=== PATIENT | female | born 1965 | race Caucasian/White ===

== ENCOUNTER 2019-06-15 21:17 | Inpatient (IN) | payer MEDICARE, MEDICAID, SELFPAY ==
--- NOTE | ~2019-06-15 | XR_ITS ---
EXAMINATION: XR chest 1V portable DATE: 06/17/2019 06:05 INDICATION: Bilateral pulmonary infiltrates TECHNIQUE: frontal view of the chest was obtained. COMPARISON: Chest radiograph dated 06/16/2019 FINDINGS: Sensitivity and specificity decreased by patient body habitus. Slight improvement in the diffuse airs pace opacities throughout both lungs relatively sparing the apices. No pneumothorax or definitive ple ural effusion. Borderline heart size for AP technique. IMPRESSION: 1. Slight improvement in diffuse bilateral lung disease which could represent pulmonary edema and/or pneumonia. 2. Borderline heart size. Reviewed, dictated and finalized at location A. IMPRESSION: 1. Slight improvement in diffuse bilateral lung disease which could represent p ulmonary edema and/or pneumonia. 2. Borderline heart size.
--- NOTE | ~2019-06-15 | XR_ITS ---
EXAMINATION: XR chest 1V portable DATE: 06/16/2019 06:18 INDICATION: Respiratory distress TECHNIQUE: frontal view of the chest was obtained. COMPARISON: Chest radiograph dated 06/15/2019 FINDINGS: Sensitivity and specificity decreased by body habitus. Increasing opacities in the bilateral mid and lower lung zones. No pneumothorax. Cardiomediastinal silhouette within normal limits for AP technique . IMPRESSION: 1. Increasing opacities in the bilateral mid and lower lung zones which could represent worsening pul monary edema and/or pneumonia possibly with superimposed posteriorly layering small pleural effusions . Reviewed, dictated and finalized at location A. IMPRESSION: 1. Increasing opacities in the bilateral mid and lower lung zones which could r epresent worsening pulmonary edema and/or pneumonia possibly with superimposed posteriorly layering small pleural effusions.
--- NOTE | ~2019-06-15 | XR_ITS ---
EXAMINATION: XR chest 1V portable DATE: 06/18/2019 05:46 INDICATION: Bilateral pulmonary infiltrates TECHNIQUE: frontal view of the chest was obtained. COMPARISON: Chest radiograph dated 06/17/2019 FINDINGS: Near complete resolution of the prior bilateral airspace opacities no pleural effusion or pneumothora x.. The cardiomediastinal silhouette is normal. IMPRESSION: 1. Near complete resolution of prior bilateral airspace opacities which given the rapidity of improve ment favors resolving pulmonary edema. Reviewed, dictated and finalized at location A. IMPRESSION: 1. Near complete resolution of prior bilateral airspace opacities which given t he rapidity of improvement favors resolving pulmonary edema.
--- NOTE | ~2019-06-15 | XR_ITS ---
EXAMINATION: XR chest 1V portable INDICATION: Shortness of breath and cough TECHNIQUE: Portable AP chest at 2150 hours COMPARISON: 11/21/2018 FINDINGS: There are airspace opacities in the mid and lower lung zone predominance. A mild diffuse in terstitial pattern is suggested. The heart size is upper limits of normal for technique. No pleural e ffusion or pneumothorax is identified. IMPRESSION: 1. Opacities of the mid and lower lung zones which could reflect atelectasis and/or pneumonia and/or pulmonary edema. Reviewed, dictated and finalized at location A. IMPRESSION: 1. Opacities of the mid and lower lung zones which could reflect atelectasis an d/or pneumonia and/or pulmonary edema.
--- NOTE | ~2019-06-15 | US_ITS ---
EXAMINATION: US renal BI EXAM DATE: 06/16/2019 15:10 INDICATION: Elevated creatinine. TECHNIQUE: Multiple grayscale and Doppler images of the kidneys were obtained (by a technologist who performed the scan) and subsequently reviewed. Comparison is made to prior examination from 03/06/2019 . FINDINGS: There is bilateral renal cortical thinning. Right kidney: There is normal dimensions, contour and echogenicity. There are no focal renal lesion s identified. There is no hydronephrosis. Left kidney: There is normal dimensions, contour and echogenicity. There are no focal renal lesions identified. There is no hydronephrosis. Bladder poorly visualized, reportedly Castillo catheter was in place. IMPRESSION: 1. Bilateral renal cortical thinning. Reviewed, dictated and finalized at location G.
--- NOTE | ~2019-06-15 | XR_ITS ---
EXAMINATION: XR chest 1V portable DATE: 06/19/2019 05:44 INDICATION: Bilateral pulmonary infiltrates TECHNIQUE: frontal view of the chest was obtained. COMPARISON: Chest radiograph dated 06/18/2019 FINDINGS: Pulmonary vascular congestion without keren pulmonary edema. No pleural effusion or pneumothorax. The cardiomediastinal silhouette is normal. IMPRESSION: 1. . Resolution of prior pulmonary edema with residual pulmonary vascular congestion Reviewed, dictated and finalized at location A. IMPRESSION: 1. . Resolution of prior pulmonary edema with residual pulmonary vascular conge aide
--- NOTE | ~2019-06-15 | US_ITS ---
EXAMINATION: US venous doppler [facility] DATE: 06/17/2019 11:05 INDICATION: Lower limb swelling TECHNIQUE: Grayscale ultrasound images without and with compression and Doppler ultrasound images of the bilateral lower extremity veins were obtained. COMPARISON: None. FINDINGS: The visualized portions of right common femoral vein, profunda (deep) femoral vein, femoral vein, pop liteal vein, posterior tibial veins, peroneal veins and greater saphenous vein outflow are patent. The visualized portions of left common femoral vein, profunda femoral vein, femoral vein, popliteal v ein, posterior tibial veins, peroneal veins, gastrocnemius vein and greater saphenous vein outflow ar e patent. IMPRESSION: 1. No deep venous thrombosis in either lower limb. Reviewed, dictated and finalized at location A.
[2019-06-15 21:12] VITALS: BP 170/84; PULSE 94; RESP 20; TEMP 36.5; O2SAT 99
--- NOTE | 2019-06-15 21:25 | ECG_ITS ---
Measurements Intervals [place] Rate: 88 P: [place]: 0 QRS: -3 QRSD: 116 T: 132 QT: 394 QTc: 479 Interpretive Statements SINUS OR ECTOPIC ATRIAL RHYTHM INTRAVENTRICULAR CONDUCTION DELAY LEFT VENTRICULAR HYPERTROPHY AND ST-T CHANGE POOR R WAVE PROGRESSION, ANTERIOR LEADS ABNORMAL ECG Electronically Signed On 06-16-2019 7:08:28 CDT by Ant Narayan D.O.
--- NOTE | 2019-06-15 21:27 | ED.GENADULT ---
HPI - General Adult General Chief complaint: Shortness of Breath/Dyspnea Stated complaint: sob, anxiety Source: patient Mode of arrival: EMS History of Present Illness HPI narrative: Patient is a 53 y/o female complaining severe chronic SOB. She states that her symptoms worsened 4 weeks ago. There is no alleviating or exacerbating factor. She feels anxious. She denies any fever, cough or chest pain. She states that she has history of COPD, CHF and sarcoidosis. 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 Related Data Home Medications Medication Instructions Recorded Confirmed Basaglar KwikPen U-100 Insulin 50 unit SUBCUT BID 03/05/19 06/07/19 aripiprazole [Abilify] 20 mg PO DAILY 03/05/19 06/07/19 atorvastatin 20 mg PO DAILY 03/05/19 06/07/19 cetirizine [Zyrtec] 10 mg PO DAILY 03/05/19 06/07/19 duloxetine [Cymbalta] 60 mg PO BID 03/05/19 06/07/19 gabapentin 300 mg PO TID 03/05/19 06/07/19 hydroxychloroquine [Plaquenil] 200 mg PO BID 03/05/19 06/07/19 hydroxyzine pamoate [Vistaril] 25 mg PO HS 03/05/19 06/07/19 insulin lispro [Admelog U-100 35 unit SUBCUT AC 03/05/19 06/07/19 Insulin lispro] isosorbide mononitrate 120 mg PO DAILY 03/05/19 06/07/19 lisinopril 10 mg PO DAILY 03/05/19 06/07/19 metoprolol tartrate 25 mg PO BID 03/05/19 06/07/19 montelukast 10 mg PO DAILY 03/05/19 06/07/19 furosemide 40 mg tablet 80 mg PO BID tablet 06/03/19 06/07/19 oxycodone-acetaminophen 10 mg-325 1 tablet PO Q8H PRN 06/03/19 06/07/19 mg tablet Allergies Allergy/AdvReac Type Severity Reaction Status Date / Time shellfish derived Allergy Severe Swelling Verified 06/15/19 22:00 iodine Allergy Mild Swelling Verified 06/15/19 22:00 penicillin G Allergy Mild Hives Verified 06/15/19 22:00 Penicillins Allergy Mild Hives Verified 06/15/19 22:00 Sulfa (Sulfonamide Allergy Mild hives Verified 06/15/19 22:00 Antibiotics) sulfamethizole Allergy Mild Hives Verified 06/15/19 22:00 sulfamethoxazole Allergy Mild hives Verified 06/15/19 22:00 trimethoprim Allergy Mild hives Verified 06/15/19 22:00 codeine AdvReac Severe Nausea and Verified 06/15/19 22:00 Vomiting Review of Systems Constitutional: Constitutional: Denies chills, Denies fever(s), Denies headache(s) and Denies weakness Eyes: Eyes: Denies blurry vision ENT: Denies headache(s) and Denies neck pain Cardiovascular: Cardiovascular: Denies chest pain and Denies dyspnea Respiratory: Respiratory: Denies cough and Reports dyspnea Gastrointestinal: Gastrointestinal: Denies abdominal pain, Denies diarrhea, Denies nausea and Denies vomiting Genitourinary: Genitourinary: Denies hematuria and Denies dysuria Musculoskeletal: Musculoskeletal: Denies back pain and Denies neck pain Neurologic: Denies headache(s) and Denies weakness [facility] Past Medical History Medical History Anemia Anxiety Bronchitis CHF (congestive heart failure) Chronic back pain CKD stage 3 due to type 1 diabetes mellitus Colon polyps COPD (chronic obstructive pulmonary disease) Depression Diabetes Endometriosis Epilepsy Foot fracture, right GERD (gastroesophageal reflux disease) Herpes History of angina HTN (hypertension) Hyperlipidemia IBS (irritable bowel syndrome) Pancreatitis Peripheral neuropathy PID (acute pelvic inflammatory disease) Pneumonia Post-menopausal Renal disease Sarcoidosis Seasonal allergies Sleep apnea Type 2 diabetes mellitus with hyperglycemia UTI (urinary tract infection) Surgical History Surgical History H/O laparoscopy History of cardiac catheterization History of section History of cholecystectomy History of endometrial ablation History of rectal polypectomy History of spinal surgery Spinal decompression surgery History of tubal ligation Family History Family History Mother
[2019-06-15 21:49] LABS: Basophils Percent Auto 0.6 % (0.2-1.2); Eosinophils Absolute Auto 0.4 K/mm3 (0-0.3); Eosinophils Percent Auto 5.7 % (0-4.4); Hematocrit 28.2 % (37.0-47.0); Immature Granulocyte Absolute 0.07 K/mm3 (0.00-0.031); Lymphocytes Absolute Auto 0.71 K/mm3 (0.9-3.2); Lymphocytes Percent Auto 10.4 % (18.3-44.2); Mean Corpuscular HGB Conc 31.9 g/dl (32-36); Mean Corpuscular Hemoglobin 28.9 pg (26-34); Mean Corpuscular Volume 90.7 fl (80-100); Mean Platelet Volume 9.7 fl (7.4-10.4); Monocytes Absolute Auto 0.5 K/mm3 (0.1-0.6); Monocytes Percent Auto 7.8 % (2.6-8.5); Neutrophils Absolute Auto 5.1 K/mm3 (1.3-6.7); Neutrophils Percent Auto 74.5 % (45.5-73.1); Platelet Count Result 176 k/mm3 (150-375); Red Blood Count 3.11 M/mm3 (4.2-5.4); Red Cell Distribution Width 15.4 % (11.5-14.5); White Blood Count 6.8 K/mm3 (4.5-10.0)
[2019-06-15 22:05] LABS: Alveolar/Arterial O2 Gradient 104.7 mmHg; Base Excess ABG -0.8 mEq/l (+/-2.0); Fractional Inspired Oxygen 32 %; HCO3 ABG 24.8 mEq/l (22.0-26.0); Oxygen Saturation ABG 93.4 % (95.0-100.0); Oxyhemoglobin 91.9 % THb (90.0-100.0); PCO2 ABG 45.4 mmHg (35.0-45.0); PO2 ABG 70.3 mmHg (80.0-100.0); pH ABG 7.356 (7.350-7.450)
[2019-06-15 22:06] LABS: Device NASAL CANNULA; Modified Allen's Test Pass; Site Drawn RIGHT RADIAL
[2019-06-15 22:23] LABS: Alanine Aminotransferase 25 U/L (4-35); Albumin Level 3.8 g/dL (3.5-5.1); Alkaline Phosphatase 98 U/L (38-126); Aspartate Amino Transferase 28 U/L (14-36); Bilirubin,Total 0.5 mg/dL (0.2-1.3); Blood Urea Nitrogen 60 mg/dL (7-17); Calcium 8.9 mg/dL (8.4-10.2); Carbon Dioxide 26 mmol/L (22-30); Chloride 95 mmol/L (98-107); Estimated CRCL calculation 49 ml/min; Estimated Glomerular Filt Rate 23; Glucose 450 mg/dL (65-105); Potassium 5.2 mmol/L (3.4-5.0); Sodium 131 mmol/L (137-145)
[2019-06-15 22:33] VITALS: BP 167/89; PULSE 78; RESP 15; O2SAT 97
[2019-06-15 22:35] LABS: NT Pro B Type Natriuretic Pept 1300 PG/ML (5-100); Troponin I < 0.012 ng/mL (0.000-0.034)
[2019-06-15] MEDS: INSULIN HUMAN REGULAR (*BKC) 100 UNITS/ML 10 UNITS IV PUSH (22:39)
[2019-06-15] MEDS: SODIUM POLYSTYRENE SULFONONATE 15 GM/60 ML BTL PO (22:39)
[2019-06-15] MEDS: methylPREDNISolone SOD SUCC 125 MG VIAL IV PUSH (22:47)
[2019-06-15 22:51] LABS: CRP 2.8 mg/dL (<1.0); Lactate Dehydrogenase 698 U/L (313-618)
[2019-06-15] MEDS: FUROSEMIDE INJ 40 MG/4 ML VIAL IV PUSH (23:30)
[2019-06-15 23:34] VITALS: BP 140/68; PULSE 78; RESP 20; O2SAT 97
[2019-06-16] VITALS (30 sets, daily range): BP systolic 139–170; BP diastolic 56–86; PULSE 70–99; RESP 17–31; TEMP 36.1–37.5; O2SAT 88–100; BMI 58.2
--- NOTE | 2019-06-16 | ECHO_ITS ---
Patient Info Name: Bettye Parada Age: 53 years : 1965 Gender: Female Ht: 70 in Wt: 406 lbs BSA: 3.13 m2 HR: 75 bpm BP: 150 / 72 mmHg Heart Rhythm: Sinus Rhythm Technical Quality: Good Exam Date: 06/16/2019 3:47 PM Exam Location: [facility] Pulmonary Patient Status: Inpatient Admit Date: 06/16/2019 Staff Ordering Physician: Massimo Mueller MD Piece Work Checker: Raji Adams RDCS Attending Provider: Jimena Watson DO Referring Physician: Ervin VANESSA; Exam Type: CA echo doppler color flow Study Info Indications R06.02 - Shortness of breath Complete two-dimensional, color flow and Doppler transthoracic echocardiogram is performed. History/Risk Factors Acute respiratory failure, DM2, COPD, HFpEF, CKD3. Summary 1. Left ventricular chamber size and systolic function are normal with no regional wall motion abnormalities with an estimated ejection fraction of >70%. Grade 2 diastolic dysfunction is present. Mild left ventricular hypertrophy noted. 2. Mitral annular calcification noted, but otherwise no significant valve disease. 3. There is mild aortic root atherosclerosis. 4. Left atrial chamber dimension is mildly enlarged. 5. Pulmonary pressures could not be determined. 6. Normal sinus rhythm. 7. Technically difficult study. Left Ventricle Left ventricular chamber dimension is normal. Left ventricular systolic function is normal, estimated at >70%. There is no increased left ventricular wall thickness. Left ventricular septal wall motion is normal. The left ventricular diastolic function is grade II diastolic dysfunction. Left ventricular chamber size and systolic function are normal with no regional wall motion abnormalities with an estimated ejection fraction of >70%. Grade 2 diastolic dysfunction is present. Mild left ventricular hypertrophy noted. Right Ventricle Right ventricular chamber dimension is normal. Right ventricular systolic function is normal. Left Atria Left atrial chamber dimension is mildly enlarged. Right Atria Right atrial chamber dimension is normal. Aortic Valve The aortic valve is trileaflet. There is no aortic valve sclerosis. There is no aortic valve stenosis. There is no aortic valve regurgitation. Pulmonic Valve The pulmonic valve is normal. There is no pulmonic valve stenosis. There is no pulmonic regurgitation. Mitral Valve The mitral valve has calcified annulus. There is no mitral valve stenosis. There is no mitral valve regurgitation. Tricuspid Valve The tricuspid valve leaflets are normal. There is no significant tricuspid valve stenosis. There is trace tricuspid valve regurgitation. No pulmonary hypertension, estimated pulmonary arterial systolic pressure is Empty. Pericardium/Pleural The pericardium appears normal. There is no pericardial effusion. Inferior Vena Cava Not well visualized inferior vena cava with >50% collapse upon inspiration consistent with Empty right atrial pressure, 10 mmHg. Aorta The aortic root size at the sinus of Valsalva is normal. The prox ascending aorta size is normal. There is mild aortic root atherosclerosis. Left Ventricular Outflow Tract Name Value Normal LVOT 2D
--- NOTE | 2019-06-16 00:38 | ADMGEN ---
This patient, Bettye Parada, was admitted to [facility] Surg Room 325-01. Patient/family oriented to hospital policies and general routines including ID bracelet, bed and alarms, visiting hours, pain management, procedures, bathroom and other care routines, personal items, smoking policy, room service/diet, and visiting hours. Valuables list has been completed. Information on how to activate the Rapid Response Team has been discussed. Patient/Family are encouraged to report perceived risks to care and to ask questions if they do not understand what they are told or what they should do.
[2019-06-16] MEDS: hydrOXYzine pamoate 25 MG CAPSULE PO ×2 (02:50→20:05)
--- NOTE | 2019-06-16 03:10 | ECG_ITS ---
Measurements Intervals [place] Rate: 100 P: [place]: 0 QRS: -11 QRSD: 125 T: 97 QT: 379 QTc: 491 Interpretive Statements SINUS OR ECTOPIC ATRIAL TACHYCARDIA MISSING LEAD V6 INTRAVENTRICULAR CONDUCTION DELAY LEFT VENTRICULAR HYPERTROPHY AND ST-T CHANGE POOR R WAVE PROGRESSION, ANTERIOR LEADS BASELINE ARTIFACT- I, II, III, AVR, AVL, AVF, V1-V5 ABNORMAL ECG Electronically Signed On 06-16-2019 7:13:05 CDT by Ant Narayan D.O.
[2019-06-16 03:38] LABS: Alveolar/Arterial O2 Gradient 258.2 mmHg; Base Excess ABG -0.4 mEq/l (+/-2.0); Fractional Inspired Oxygen 50 %; HCO3 ABG 24.5 mEq/l (22.0-26.0); Oxygen Content ABG 13.7 %vol (16.0-22.0); Oxyhemoglobin 85.4 % THb (90.0-100.0); PCO2 ABG 40.8 mmHg (35.0-45.0); PO2 ABG 52.4 mmHg (80.0-100.0); PO2 FiO2 Ratio Arterial Blood 1.05 %; Total Hemoglobin 11.4 g/dL (12.0-18.0); pH ABG 7.396 (7.350-7.450)
--- NOTE | 2019-06-16 03:40 | PM.IMHP ---
H&P: HPI History of Present Illness Chief complaint: Shortness of breath and anxiety Narrative: Date and time of patient contact: 06/16/2019 at 3:40 a.m. Bettye Parada is a 53 year old female with a past medical history of poorly controlled insulin-dependent diabetes, peripheral neuropathy, sarcoidosis of the lungs, COPD, diastolic congestive heart failure, morbid obesity, obstructive sleep apnea, chronic kidney disease stage III who presented to the ER via EMS due to shortness of breath and anxiety. The patient reports that she has been short of breath for about a month. She has only been using her BiPAP for couple of hours at night. She states that she has been sleeping in a chair because she cannot lay down. The patient used to have chronic home oxygen but has not needed it in quite some time. She tried Mucinex at home without relief in her symptoms. She initially told me that she had not been coughing much but started coughing this evening after she arrived on the medical floor. She denies any fevers, loss of the sense of taste or smell, chills, nausea, or vomiting. The patient was requiring oxygen in the ER but the ER staff was able to wean the patient to room air after she received 40 mg of Lasix IV, and IV Solu-Medrol. However the patient remained tachypneic with respiratory rates in the upper 20s to low 30s. When she arrived to the medical floor she was satting 94% on room air. Due to her acute tachypnea the nursing staff placed her on nasal cannula oxygen of 5 L. the patient had gotten up to the bedside commode twice with only minimal difficult. However when she got up to the bedside commode a 3rd time she became hypoxic, developed substernal chest pain, and significant increased work of breathing. Nursing staff tried to contact june around 3:15 a.m. but I was in another patient's room. When the patient still had not recovered a rapid response was called at 3:27 a.m.. A stat ABG was drawn and the patient's oxygen was increased to 7 L nasal cannula. When I arrived at the patient's bedside at 3:40 a.m. the patient was sitting up outside the bed satting 100% on a non-rebreather. Her ABG returned at about that time demonstrating a pH a 7.39, pCO2 of 40, PO2 of 52 and bicarb of 24. The patient was mildly tachypneic when I arrived at the bedside with mild increased work of breathing. She had developed a dry cough since arriving from the ER. The patient had had 2.3 L of urine output since arriving to the medical floor. She reports that she was having good urine output with her home Lasix as well. But despite her urine output with Lasix the swelling in her lower extremities had been worsening. She reported that her chest pain was better after I gave her a dose of Ativan at time of the rapid response. Her breathing had calmed then she was wanting to try to get back into the bed and lay back instead of sitting forward on the edge of the bed. Stat troponin returned less than 0.012. A stat EKG was done but was poor quality due to the patient's respiratory distress and positioning. Stat D-dimer was mildly elevated. The patient's LDH was mildly left elevated in the ER to 698. Her BNP was 1300 which is similar to her prior BNPs. Her CRP was also elevated. Of note the patient's assisted living housekeeper's mother tested positive for COVID-19. Given the patient's respiratory symptoms and chest x-ray findings the patient was tested for COVID-19 in the ER. The patient was placed on isolation. Given the patient's high oxygen requirement and respiratory distress decision was made to transfer the patient to a higher level of care. When the patient's morning labs returned her potassium had climbed from 5.2-6 and her glucose had climbed from 450 up to 635. Given her hyperglycemia she was given 18 units of regular insulin IV, an amp of sodium bicarb in an amp of calcium gluconate. The patient had already received p.o. Kayexalate in the ER. subsequently a conta
[2019-06-16 03:42] LABS: Device NASAL CANNULA; Modified Allen's Test Pass; Site Drawn LEFT RADIAL
[2019-06-16] MEDS: LORAZEPAM INJ 2 MG/ML VIAL 1 MG IV PUSH (03:43)
[2019-06-16] MEDS: FUROSEMIDE INJ 40 MG/4 ML VIAL IV PUSH (03:50)
[2019-06-16 04:08] LABS: Basophils Percent Auto 0.5 % (0.2-1.2); Eosinophils Percent Auto 0.5 % (0-4.4); Hematocrit 31.1 % (37.0-47.0); Hemoglobin 10.1 g/dL (12.0-15.0); Immature Granulocyte Absolute 0.19 K/mm3 (0.00-0.031); Immature Granulocyte Percent A 2.2 % (0-0.5); Lymphocytes Percent Auto 4.6 % (18.3-44.2); Mean Corpuscular HGB Conc 32.5 g/dl (32-36); Mean Corpuscular Hemoglobin 29.4 pg (26-34); Mean Corpuscular Volume 90.4 fl (80-100); Mean Platelet Volume 9.6 fl (7.4-10.4); Monocytes Absolute Auto 0.1 K/mm3 (0.1-0.6); Monocytes Percent Auto 1.3 % (2.6-8.5); Neutrophils Percent Auto 90.9 % (45.5-73.1); Nucleated Red Blood Cells Perc 0.2 % (0.0-0.2); Platelet Count Result 187 k/mm3 (150-375); Red Blood Count 3.44 M/mm3 (4.2-5.4); Red Cell Distribution Width 15.1 % (11.5-14.5); White Blood Count 8.8 K/mm3 (4.5-10.0)
[2019-06-16 04:17] LABS: Prothrombin Time 12.9 Seconds (11.1-14.7)
[2019-06-16 04:20] LABS: D Dimer 1.68 ug/mL (<0.48)
[2019-06-16 04:33] LABS: Troponin I < 0.012 ng/mL (0.000-0.034)
[2019-06-16 04:35] LABS: Blood Urea Nitrogen 60 mg/dL (7-17); Calcium 8.8 mg/dL (8.4-10.2); Carbon Dioxide 26 mmol/L (22-30); Chloride 94 mmol/L (98-107); Estimated CRCL calculation 54 ml/min; Estimated Glomerular Filt Rate 26; Glucose 635 mg/dL (65-105); Sodium 129 mmol/L (137-145)
--- NOTE | 2019-06-16 04:50 | PC.NURSE ---
Patient transferred to ICU4 at 0435 on 06/16/19. Placed on BiPAP at 15/5 with 60%FiO2. SpO2 99%.
[2019-06-16] MEDS: CALCIUM GLUCONATE 1,000 MG/10 ML VIAL 1000 MG IV PUSH (05:42)
[2019-06-16] MEDS: SODIUM BICARBONATE 8.4% 50 MEQ/50 ML VIAL IV PUSH (05:42)
[2019-06-16] MEDS: INSULIN HUMAN REGULAR (*BKC) 100 UNITS/ML 18 UNITS IV PUSH (05:42)
[2019-06-16 05:50] LABS: Glucose Point of Care > 500 (65-105)
[2019-06-16] MEDS: INSULIN HUMAN REGULAR (*BKC) 100 UNITS in SODIUM CHLORIDE 0.9% IV 99 ML 10.6 UNITS IV CONT (06:18)
[2019-06-16 07:12] LABS: Glucose Point of Care > 500 (65-105)
[2019-06-16 07:19] LABS: Blood Urea Nitrogen 63 mg/dL (7-17); Calcium 9.1 mg/dL (8.4-10.2); Carbon Dioxide 28 mmol/L (22-30); Chloride 95 mmol/L (98-107); Estimated CRCL calculation 54 ml/min; Estimated Glomerular Filt Rate 26; Glucose 596 mg/dL (65-105); Potassium 5.2 mmol/L (3.4-5.0); Sodium 131 mmol/L (137-145)
[2019-06-16 07:38] LABS: Magnesium 2.2 mg/dL (1.6-2.3); Phosphorus 4.6 mg/dL (2.5-4.5)
[2019-06-16 07:39] LABS: Alveolar/Arterial O2 Gradient 244.7 mmHg; Base Excess ABG 1.5 mEq/l (+/-2.0); Carboxyhemoglobin 0.1 % THb (0-2.0); Fractional Inspired Oxygen 60 %; HCO3 ABG 27.6 mEq/l (22.0-26.0); Methemoglobin ABG 0.5 %THb (0-1.5); Oxygen Content ABG 16.6 %vol (16.0-22.0); Oxygen Saturation ABG 98.4 % (95.0-100.0); Oxyhemoglobin 97.2 % THb (90.0-100.0); PCO2 ABG 49.6 mmHg (35.0-45.0); PO2 ABG 128.5 mmHg (80.0-100.0); PO2 FiO2 Ratio Arterial Blood 2.14 %; Reduced Hemoglobin 2.2 %THb (0-5.0); pH ABG 7.363 (7.350-7.450)
[2019-06-16 07:40] LABS: Device NON-INVASIVE VENT; Modified Allen's Test Pass; Site Drawn LEFT RADIAL
[2019-06-16 07:41] LABS: Non-Invasive Expiratory Pressure 5 CMH2O; Non-Invasive Inspiratory Pressure 15 CMH2O; Non-Invasive Vent Rate 6 /MIN
[2019-06-16] MEDS: ATORVASTATIN 20 MG TABLET PO (08:58)
[2019-06-16] MEDS: DULOXETINE 60 MG CAPSULE.DR PO ×2 (08:58→16:30)
[2019-06-16] MEDS: GABAPENTIN 300 MG CAPSULE PO ×2 (08:59→16:26)
[2019-06-16] MEDS: LORATADINE 10 MG TABLET PO (08:59)
[2019-06-16] MEDS: MONTELUKAST SODIUM 10 MG TABLET PO (08:59)
[2019-06-16] MEDS: ISOSORBIDE MONONITRATE 60 MG TAB.ER.24H 120 MG PO (09:00)
[2019-06-16] MEDS: METOPROLOL TARTRATE 25 MG TABLET PO ×2 (09:00→16:29)
[2019-06-16] MEDS: ARIPIPRAZOLE 10 MG TABLET 20 MG PO (09:01)
--- NOTE | 2019-06-16 09:11 | WPDCNINT ---
Assessment and Plan Assessment and plan (1) Respiratory failure with hypoxia and hypercapnia: Qualifiers: Chronicity: acute on chronic Qualified Code(s): J96.21 - Acute and chronic respiratory failure with hypoxia; J96.22 - Acute and chronic respiratory failure with hypercapnia Code(s): J96.91 - Respiratory failure, unspecified with hypoxia; J96.92 - Respiratory failure, unspecified with hypercapnia Status: Acute Assessment and Plan: patient with bilateral infiltrates on chest x-ray, likely related to pneumonia, heart failure, volume overload - SARS-COV-2 PCR has been sent for COVID-19 - patient has been diuresed - started on ceftriaxone and azithromycin - patient on BiPAP, 15/5, 40% FiO2 with good O2 sats - continue bronchodilators, Solu-Medrol - Will check ECHO as patient has history obstructive sleep apnea, could have pulmonary hypertension, congestive heart failure (2) Suspected COVID-19 virus infection: Code(s): R68.89 - Other general symptoms and signs Status: Acute Assessment and Plan: SARS-COV-2 PCR has been sent and pending - continue droplet and airborne precautions for now (3) CHF (congestive heart failure): Qualifiers: Heart failure chronicity: acute on chronic Heart failure type: diastolic Qualified Code(s): I50.33 - Acute on chronic diastolic (congestive) heart failure Code(s): I50.9 - Heart failure, unspecified Status: Acute Assessment and Plan: patient with history of congestive heart failure - will check echocardiogram to assess right and left heart function (4) Hyperkalemia: Code(s): E87.5 - Hyperkalemia Status: Acute Assessment and Plan: patient presented with hyperkalemia could be related to acute on chronic kidney disease, - patient was treated for hyperkalemia, - potassium 4.9 this morning, will continue to monitor (5) Acute kidney injury superimposed on chronic kidney disease: Code(s): N17.9 - Acute kidney failure, unspecified; N18.9 - Chronic kidney disease, unspecified Status: Acute Assessment and Plan: acute on chronic kidney disease could multifactorial. Worsening secondary to diabetes, essential hypertension, obstructive sleep apnea, possible pulmonary hypertension, volume overload. - Appreciate Nephrology evaluation recommendation - will discuss with Nephrology regarding diuresis along with possible albumin as patient has anasarca - would give it a try with diuresis, if creatinine worsens will hold diuresing and give IV fluids. - Continue to monitor renal function, electrolytes and urine output (6) Hyperglycemic crisis due to diabetes mellitus: Code(s): E11.65 - Type 2 diabetes mellitus with hyperglycemia Status: Acute Assessment and Plan: hyperglycemia with blood sugars in the 600s - patient started on insulin infusion - hemoglobin A1c this admission is 11.0 (7) HTN (hypertension): Qualifiers: Hypertension type: essential hypertension Qualified Code(s): I10 - Essential (primary) hypertension Code(s): I10 - Essential (primary) hypertension Status: Acute Assessment and Plan: history of essential hypertension, continue metoprolol, Imdur Additional Plan discussed with patient in details, explained to her her condition and plan of care. Also discussed with her regarding intubation if her respiratory status worsens and if she requires intubation and placement on a mechanical ventilator, she agreed to it. She states she does want to . Code status: Full code Critical care time spent: 51 minutes Due to a high probability of clinically significant, life threatening deterioration, the patient required my highest level of preparedness to intervene emergently and I personally spent this critical care time directly and personally managing the patient. This critical care time included obtaining a history;
[2019-06-16 09:18] LABS: Glucose Point of Care > 500 (65-105)
--- NOTE | 2019-06-16 09:34 | PM.IMPN ---
Progress Note: A&P Assessment and Plan (1) Respiratory failure with hypoxia and hypercapnia: Qualifiers: Chronicity: acute on chronic Qualified Code(s): J96.21 - Acute and chronic respiratory failure with hypoxia; J96.22 - Acute and chronic respiratory failure with hypercapnia Code(s): J96.91 - Respiratory failure, unspecified with hypoxia; J96.92 - Respiratory failure, unspecified with hypercapnia Status: Acute Assessment and Plan: Now in ICU. Appreciate help from vp informatics. On BiPAP. COVID-19 testing initiated with results negative this afternoon. Continue IV ceftriaxone and azithromycin. Has had diuresis. On IV steroids. Continue nebulizer treatments. Will continue to monitor closely. (2) Hyperglycemic crisis due to diabetes mellitus: Code(s): E11.65 - Type 2 diabetes mellitus with hyperglycemia Status: Acute Assessment and Plan: Significant elevation of glucose above 500 on admission. Received regular IV insulin. Infusion started this morning. Will continue to monitor closely and adjust treatment as needed. (3) Acute kidney injury superimposed on chronic kidney disease: Code(s): N17.9 - Acute kidney failure, unspecified; N18.9 - Chronic kidney disease, unspecified Status: Acute Assessment and Plan: Nephrology consulted and appreciate input. Creatinine remaining 1.90-2.00. Will monitor with IV Lasix in use. (4) Suspected COVID-19 virus infection: Code(s): R68.89 - Other general symptoms and signs Status: Acute Assessment and Plan: Suspected on admission but COVID-19 testing is now negative. Already on hydroxychloroquine at home for her sarcoidosis. Continue treatment of other issues as noted. (5) CHF (congestive heart failure): Qualifiers: Heart failure chronicity: acute on chronic Heart failure type: diastolic Qualified Code(s): I50.33 - Acute on chronic diastolic (congestive) heart failure Code(s): I50.9 - Heart failure, unspecified Status: Acute Assessment and Plan: Echocardiogram results pending. Continue IV Lasix. Also continue oral metoprolol. (6) Hyperkalemia: Code(s): E87.5 - Hyperkalemia Status: Acute Assessment and Plan: Received Kayexalate in the ER. Also received sodium bicarb, calcium gluconate and IV insulin. Nephrology now consulted as noted. Most recent potassium now improved to 4.4. Will monitor. (7) HTN (hypertension): Qualifiers: Hypertension type: essential hypertension Qualified Code(s): I10 - Essential (primary) hypertension Code(s): I10 - Essential (primary) hypertension Status: Acute Assessment and Plan: Blood pressure reviewed on 06/16/2019 and acceptable. Will continue to monitor with IV Lasix, oral metoprolol and Imdur. (8) DVT prophylaxis: Code(s): Z29.9 - Encounter for prophylactic measures, unspecified Status: Acute Assessment and Plan: Will do heparin subcutaneously with renal function. Time Spent With Patient Time with patient: 15 - 25 minutes Subjective Date/time seen: 06/16/19 09:34 Interval history: Date of Service: 06/16/2019. Admitted with acute respiratory failure, hyperglycemia. Currently on BiPAP. Awake. Does not feel well. Has shortness of breath. No chest pain or pressure. No headache. Review of Systems Review of Systems: Narrative: Does not feel well. Constitutional: Constitutional: Denies fever(s) Cardiovascular: Cardiovascular: Denies chest pain Respiratory: Respiratory: Reports dyspnea Gastrointestinal: Gastrointestinal: Denies abdominal pain Genitourinary: Comments: Catheter in place Integumentary/Breasts: Skin/Breast: Reports erythema (Lower extremity) Neurologic: Reports confusion Psychiatric: Comments: Not currently agitated Exam Narrative: Exam Narrative: Able to be aroused. Const: General: no acute distress HENMT: Othe
[2019-06-16] MEDS: INSULIN HUMAN REGULAR (*BKC) 100 UNITS in SODIUM CHLORIDE 0.9% IV 99 ML 20.3 UNITS IV CONT (10:10)
[2019-06-16 10:56] LABS: Glucose Point of Care 466 (65-105)
[2019-06-16 11:04] LABS: Creatinine Urine 57.6 mg/dL
[2019-06-16 11:06] LABS: Blood Urea Nitrogen 61 mg/dL (7-17); Calcium 9.4 mg/dL (8.4-10.2); Carbon Dioxide 30 mmol/L (22-30); Chloride 95 mmol/L (98-107); Estimated CRCL calculation 54 ml/min; Estimated Glomerular Filt Rate 26; Glucose 492 mg/dL (65-105); Potassium 4.9 mmol/L (3.4-5.0); Sodium 134 mmol/L (137-145)
--- NOTE | 2019-06-16 11:09 | PM.CNNEP ---
Assessment and Plan Assessment and plan (1) Acute kidney injury superimposed on chronic kidney disease: Code(s): N17.9 - Acute kidney failure, unspecified; N18.9 - Chronic kidney disease, unspecified Status: Acute Assessment and Plan: The patient has chronic kidney disease. This is stage III. Most likely this is due to hypertension and diabetes. Obesity and sleep apnea can also cause issues with proteinuria and possibly segmental sclerosis. She has sarcoidosis and sometimes this can affect the kidneys as well. She has had evaluation as an outpatient. The patient has acute kidney injury. She was in the hospital earlier this year and had acute kidney injury with a creatinine of 4. This was felt to be Caused by dehydration from her hyperglycemia. Her creatinine rapidly improved with hydration. Her sugars are very high as well. And pre renal azotemia could be a cause for her high creatinine however she has swelling and her chest x-ray shows fluid, so it is not that simple. Her primary two problems are an elevated creatinine and hypoxia. Things that could cause both of those would include nephrotic syndrome (but she did not have much protein on her urinalysis in February), left-sided congestive heart failure (we will get an echo), pulmonary problems such as pulmonary hypertension, sleep apnea (which she probably has chronically), and systemic issues such as sepsis. As far as hypoxia goes,She does have some fluid in her lungs, however, and she also was hypoxic this morning so this part of the fluid overload would have to be left-side or lung parenchyma such as infection. The overall feeling I have is that she is volume overloaded. If she has any semblance of pre renal azotemia it is probably on the basis of poor forward flow from something cardiac. I do not think she is overall dehydrated. She probably has pulmonary hypertension because she has obesity and also because she does not use her CPAP machine. I would like to get urine electrolytes to see if she has a prerenal picture. I think it would be prudent to use diuretics right now. I do not think she needs IV fluids. If she is volume overloaded especially with pulmonary hypertension, she might have renal venous hypertension and so diuretics might actually improve her creatinine. If she has poor forward flow due to her pulmonary hypertension and her creatinine is high due to that that her creatinine might get worse with diuretics. So with this point I would like to get urine electrolytes, eosinophils, renal ultrasound, and an echocardiogram. After she has had the urine electrolytes drawn we can give a trial of diuretics. (2) Suspected COVID-19 virus infection: Code(s): R68.89 - Other general symptoms and signs Status: Acute Assessment and Plan: The testing is pending (3) Respiratory failure with hypoxia and hypercapnia: Qualifiers: Chronicity: acute on chronic Qualified Code(s): J96.21 - Acute and chronic respiratory failure with hypoxia; J96.22 - Acute and chronic respiratory failure with hypercapnia Code(s): J96.91 - Respiratory failure, unspecified with hypoxia; J96.92 - Respiratory failure, unspecified with hypercapnia Status: Acute Assessment and Plan: Multiple causes for this, including sleep apnea, restricted disease from her obesity, possibly fluid, possible infection. She is getting supportive care. (4) CHF (congestive heart failure): Qualifiers: Heart failure chronicity: acute on chronic Heart failure type: diastolic Qualified Code(s): I50.33 - Acute on chronic diastolic (congestive) heart failure Code(s): I50.9 - Heart failure, unspecified Status: Acute Assessment and Plan: She has at least right-sided heart failure if not left-sided. Will get an echocardiogram to sort this out. (5) HTN (hypertension): Qualifiers: Hypertension type: essential hypertensi
[2019-06-16 11:10] LABS: Lactate Dehydrogenase 676 U/L (313-618)
[2019-06-16 11:12] LABS: D Dimer 1.37 ug/mL (<0.48)
[2019-06-16] MEDS: INSULIN HUMAN REGULAR (*BKC) 100 UNITS in SODIUM CHLORIDE 0.9% IV 99 ML 21.6 UNITS IV CONT (11:49)
[2019-06-16 12:09] LABS: Hepatitis B Surface Antigen Negative (Negative)
[2019-06-16] MEDS: methylPREDNISolone SOD SUCC 125 MG VIAL 60 MG IV PUSH ×3 (12:12→23:43)
[2019-06-16] MEDS: FUROSEMIDE INJ 100 MG/10 ML VIAL 80 MG IV PUSH ×2 (12:13→20:05)
[2019-06-16 12:15] LABS: HAV RESULT Negative (Negative); Hepatitis B Core IgM Result Negative (Negative)
[2019-06-16 12:18] LABS: Add Urine Microscopic? YES; Appearance Urine Clear (Clear); Bilirubin Urine Negative (Negative); Blood Urine 2+ (Negative); Color Urine Straw (Yellow); Glucose Urine UA 3+ mg/dL (Negative); Ketones Urine Negative (Negative); Leukocyte Esterase Ur Negative LEU/UL (NEGATIVE); Nitrate Urine Negative (Negative); Protein Urine Negative (Negative); Specific Grav Ur 1.014 (1.001-1.035); Urobilinogen Urine Negative mg/dL (<2.0)
[2019-06-16 12:22] LABS: Creatinine Urine 55.1 mg/dL; Total Protein Urine Random 13 mg/dL
[2019-06-16 12:23] LABS: Sodium Urine Random 13 meq/L
[2019-06-16 12:27] LABS: Hepatitis C Virus Antibody Negative (Negative)
[2019-06-16] MEDS: ACYCLOVIR 400 MG TABLET PO ×2 (12:48→20:04)
[2019-06-16] MEDS: PANTOPRAZOLE SODIUM IV 40 MG VIAL IV PUSH (12:48)
[2019-06-16 13:02] LABS: Glucose Point of Care 397 (65-105)
[2019-06-16 13:02] LABS: Glucose Point of Care 420 (65-105)
[2019-06-16] MEDS: ALBUTEROL SULFATE NEB 2.5 MG/0.5 ML INH INHALATION ×2 (13:35→20:22)
[2019-06-16 14:10] LABS: SARS-CoV-2 RNA PCR Negative
[2019-06-16 14:23] LABS: Glucose Point of Care 320 (65-105)
[2019-06-16 14:25] LABS: Creatine Kinase 206 U/L (30-135)
[2019-06-16 14:26] LABS: Blood Urea Nitrogen 63 mg/dL (7-17); Calcium 9.3 mg/dL (8.4-10.2); Carbon Dioxide 31 mmol/L (22-30); Chloride 97 mmol/L (98-107); Estimated CRCL calculation 57 ml/min; Estimated Glomerular Filt Rate 28; Glucose 373 mg/dL (65-105); Potassium 4.7 mmol/L (3.4-5.0); Sodium 133 mmol/L (137-145)
[2019-06-16 14:52] LABS: Erythrocyte Sedimentation Rate > 140 mm/hr (0-20)
[2019-06-16 14:57] LABS: Cortisol Random 8.99 ug/dL
[2019-06-16 14:59] LABS: Complement C3 111 mg/dL (88-165)
[2019-06-16 15:23] LABS: Glucose Point of Care 322 (65-105)
[2019-06-16] MEDS: INSULIN HUMAN REGULAR (*BKC) 100 UNITS in SODIUM CHLORIDE 0.9% IV 99 ML 24.5 UNITS IV CONT (16:22)
--- NOTE | 2019-06-16 16:31 | PC.NURSE ---
1630: RN missed 1300 dose of gabapentin. 1700 dose charted not given.
[2019-06-16 17:28] LABS: Glucose Point of Care 305 (65-105)
[2019-06-16 17:50] LABS: Glucose Point of Care 278 (65-105)
[2019-06-16 18:04] LABS: Blood Urea Nitrogen 59 mg/dL (7-17); Calcium 9.3 mg/dL (8.4-10.2); Carbon Dioxide 31 mmol/L (22-30); Chloride 96 mmol/L (98-107); Estimated CRCL calculation 57 ml/min; Estimated Glomerular Filt Rate 28; Glucose 278 mg/dL (65-105); Potassium 4.4 mmol/L (3.4-5.0); Sodium 135 mmol/L (137-145)
[2019-06-16 18:49] LABS: Glucose Point of Care 224 (65-105)
[2019-06-16 19:30] LABS: Glucose Point of Care 225 (65-105)
[2019-06-16] MEDS: HEPARIN SODIUM 5,000 UNITS/ML VIAL 5000 UNITS SUB-Q (20:08)
[2019-06-16 20:28] LABS: Glucose Point of Care 213 (65-105)
[2019-06-16] MEDS: INSULIN HUMAN REGULAR (*BKC) 100 UNITS in SODIUM CHLORIDE 0.9% IV 99 ML 21.4 UNITS IV CONT (21:18)
[2019-06-16 21:45] LABS: Glucose Point of Care 219 (65-105)
[2019-06-16 21:54] LABS: Blood Urea Nitrogen 59 mg/dL (7-17); Calcium 9.5 mg/dL (8.4-10.2); Carbon Dioxide 33 mmol/L (22-30); Chloride 97 mmol/L (98-107); Estimated CRCL calculation 57 ml/min; Estimated Glomerular Filt Rate 28; Glucose 220 mg/dL (65-105); Potassium 4.3 mmol/L (3.4-5.0); Sodium 137 mmol/L (137-145)
[2019-06-16 22:25] LABS: Glucose Point of Care 205 (65-105)
[2019-06-16 23:45] LABS: Glucose Point of Care 175 (65-105)
[2019-06-17] VITALS (21 sets, daily range): BP systolic 121–157; BP diastolic 56–86; PULSE 65–81; RESP 14–20; TEMP 36.6–37.1; O2SAT 92–98
[2019-06-17 00:26] LABS: Glucose Point of Care 163 (65-105)
[2019-06-17 01:24] LABS: Glucose Point of Care 165 (65-105)
[2019-06-17] MEDS: ALBUTEROL SULFATE NEB 2.5 MG/0.5 ML INH INHALATION ×2 (01:50→09:04)
[2019-06-17] MEDS: LORAZEPAM INJ 2 MG/ML VIAL 0.5 MG IV PUSH (01:53)
[2019-06-17] MEDS: INSULIN HUMAN REGULAR (*BKC) 100 UNITS in SODIUM CHLORIDE 0.9% IV 99 ML 16.8 UNITS IV CONT (01:53)
[2019-06-17 02:44] LABS: Glucose Point of Care 158 (65-105)
[2019-06-17 03:25] LABS: Glucose Point of Care 150 (65-105)
[2019-06-17 04:36] LABS: Glucose Point of Care 236 (65-105)
[2019-06-17 04:45] LABS: Alveolar/Arterial O2 Gradient 76.2 mmHg; Base Excess ABG 5.8 mEq/l (+/-2.0); Carboxyhemoglobin 0.2 % THb (0-2.0); Fractional Inspired Oxygen 28 %; HCO3 ABG 30.7 mEq/l (22.0-26.0); Methemoglobin ABG 0.4 %THb (0-1.5); Oxygen Content ABG 12.5 %vol (16.0-22.0); Oxygen Saturation ABG 94.1 % (95.0-100.0); PCO2 ABG 46.7 mmHg (35.0-45.0); PO2 ABG 68.3 mmHg (80.0-100.0); PO2 FiO2 Ratio Arterial Blood 2.44 %; Reduced Hemoglobin 7.4 %THb (0-5.0); Total Hemoglobin 9.6 g/dL (12.0-18.0); pH ABG 7.436 (7.350-7.450)
[2019-06-17 04:46] LABS: Device NASAL CANNULA; Modified Allen's Test Pass; Site Drawn LEFT RADIAL
[2019-06-17] MEDS: methylPREDNISolone SOD SUCC 125 MG VIAL 60 MG IV PUSH (05:33)
[2019-06-17 05:37] LABS: Glucose Point of Care 256 (65-105)
[2019-06-17] MEDS: INSULIN DETEMIR 100 UNITS/ML 20 UNITS SUB-Q (05:57)
[2019-06-17] MEDS: INSULIN HUMAN REGULAR (*BKC) 100 UNITS/ML 10 UNITS IV PUSH (05:57)
[2019-06-17] MEDS: INSULIN HUMAN REGULAR (*BKC) 100 UNITS in SODIUM CHLORIDE 0.9% IV 99 ML 35.3 UNITS IV CONT (05:58)
[2019-06-17 06:15] LABS: Hematocrit 25.8 % (37.0-47.0); Hemoglobin 8.3 g/dL (12.0-15.0); Mean Corpuscular HGB Conc 32.2 g/dl (32-36); Mean Corpuscular Hemoglobin 29.2 pg (26-34); Mean Corpuscular Volume 90.8 fl (80-100); Mean Platelet Volume 9.7 fl (7.4-10.4); Platelet Count Result 174 k/mm3 (150-375); Red Blood Count 2.84 M/mm3 (4.2-5.4); Red Cell Distribution Width 15.1 % (11.5-14.5); White Blood Count 11.4 K/mm3 (4.5-10.0)
[2019-06-17 06:29] LABS: Lactic Acid 1.4 mmol/L (0.7-2.1)
[2019-06-17 06:33] LABS: Blood Urea Nitrogen 59 mg/dL (7-17); Calcium 9.1 mg/dL (8.4-10.2); Carbon Dioxide 32 mmol/L (22-30); Chloride 97 mmol/L (98-107); Estimated CRCL calculation 60 ml/min; Estimated Glomerular Filt Rate 30; Glucose 236 mg/dL (65-105); Magnesium 2.2 mg/dL (1.6-2.3); Phosphorus 4.2 mg/dL (2.5-4.5); Potassium 3.8 mmol/L (3.4-5.0); Sodium 134 mmol/L (137-145)
[2019-06-17 06:34] LABS: Glucose Point of Care 190 (65-105)
--- NOTE | 2019-06-17 07:30 | WPDINTPN ---
Progress Note: A&P Assessment and Plan (1) Respiratory failure with hypoxia and hypercapnia: Qualifiers: Chronicity: acute on chronic Qualified Code(s): J96.21 - Acute and chronic respiratory failure with hypoxia; J96.22 - Acute and chronic respiratory failure with hypercapnia Code(s): J96.91 - Respiratory failure, unspecified with hypoxia; J96.92 - Respiratory failure, unspecified with hypercapnia Status: Acute Assessment and Plan: patient with bilateral infiltrates on chest x-ray, likely related to pneumonia, heart failure, volume overload from SULLY - SARS-COV-2 PCR for COVID-19 was negative - patient is being diuresed. Patient received Lasix twice yesterday. This with Nephrology will start Bumex drip for next 24 hours. - Continue ceftriaxone and azithromycin - patient off of BiPAP at this time and tolerating nasal cannula will use BiPAP p.r.n. and at night patient does have CPAP at home but does not use it - continue bronchodilators - I will decrease Solu-Medrol - Will check ECHO as patient has history obstructive sleep apnea, could have pulmonary hypertension, congestive heart failure. echo was done but report is pending (2) Suspected COVID-19 virus infection: Code(s): R68.89 - Other general symptoms and signs Status: Acute Assessment and Plan: SARS-COV-2 PCR was negative (3) CHF (congestive heart failure): Qualifiers: Heart failure chronicity: acute on chronic Heart failure type: diastolic Qualified Code(s): I50.33 - Acute on chronic diastolic (congestive) heart failure Code(s): I50.9 - Heart failure, unspecified Status: Acute Assessment and Plan: patient with history of congestive heart failure - will check echocardiogram to assess right and left heart function (4) Hyperkalemia: Code(s): E87.5 - Hyperkalemia Status: Acute Assessment and Plan: patient presented with hyperkalemia could be related to acute on chronic kidney disease, - patient was treated for hyperkalemia, - potassium potassium level is normal now will continue monitor (5) Acute kidney injury superimposed on chronic kidney disease: Code(s): N17.9 - Acute kidney failure, unspecified; N18.9 - Chronic kidney disease, unspecified Status: Acute Assessment and Plan: acute on chronic kidney disease could multifactorial. Worsening secondary to diabetes, essential hypertension, obstructive sleep apnea, possible pulmonary hypertension, volume overload. - Appreciate Nephrology evaluation recommendation - creatinine is improving and is 1.8 today - patient received Lasix twice a day yesterday. Discussed with nephrology will start Bumex drip for continued diuresis - Continue to monitor renal function, electrolytes and urine output (6) Hyperglycemic crisis due to diabetes mellitus: Code(s): E11.65 - Type 2 diabetes mellitus with hyperglycemia Status: Acute Assessment and Plan: hyperglycemia with blood sugars in the 600s - patient started on insulin infusion and is on very high dose at this time - hemoglobin A1c this admission is 11.0 - I will increase the detemir to 50 twice a day. - Continue insulin infusion - decrease steroids (7) HTN (hypertension): Qualifiers: Hypertension type: essential hypertension Qualified Code(s): I10 - Essential (primary) hypertension Code(s): I10 - Essential (primary) hypertension Status: Acute Assessment and Plan: history of essential hypertension, continue metoprolol, Imdur - treat as needed (8) Edema: Code(s): R60.9 - Edema, unspecified Status: Acute Assessment and Plan: check lower extremity Dopplers to rule out DVT although the swelling appears to be secondary to heart failure and volume overload Additional Plan DVT prophylaxis - heparin Stress ulcer prophylaxis - not indicated Nutrition - advance diet Phy
[2019-06-17 07:32] LABS: Glucose Point of Care 165 (65-105)
--- NOTE | 2019-06-17 08:21 | PM.PNNEP ---
Progress Note: A&P Assessment and Plan (1) Acute kidney injury superimposed on chronic kidney disease: Code(s): N17.9 - Acute kidney failure, unspecified; N18.9 - Chronic kidney disease, unspecified Status: Acute Assessment and Plan: The patient has chronic kidney disease. This is stage III. Most likely this is due to hypertension and diabetes. Obesity and sleep apnea can also cause issues with proteinuria and possibly segmental sclerosis. She has sarcoidosis and sometimes this can affect the kidneys as well. She has had evaluation as an outpatient. It does not seem that her sarcoidosis is active right now. The patient has acute kidney injury. Is around 1.5 and currently it is around 2. The renal ultrasound shows bilateral cortical thinning. Echocardiogram is pending. Urine electrolytes are pre renal. Hepatitis studies are negative. COVID test is negative. Sed rate is > 140. CPK is only mildly abnormal. Other serology and immunofixation are pending. At this point looks like she has pre renal azotemia yet she has volume overload. This could be due to cardiac disease. An echocardiogram is pending. Sleep apnea can do this as well. Nephrotic syndrome can sometimes do this but her protein is negative. Amyloidosis is unlikely because of the low urine protein to creatinine ratio. She responded well to diuretics and spite of the pre renal state. I suspect that she may have renal venous hypertension due to pulmonary hypertension and so diuretics effected a good urine output plus an improvement in creatinine (or at least not worse) Volume overload is still her major issue right now. We will go ahead and switch to a Bumex drip to help get more urine output. (2) Suspected COVID-19 virus infection: Code(s): R68.89 - Other general symptoms and signs Status: Acute Assessment and Plan: The testing is negative. (3) Respiratory failure with hypoxia and hypercapnia: Qualifiers: Chronicity: acute on chronic Qualified Code(s): J96.21 - Acute and chronic respiratory failure with hypoxia; J96.22 - Acute and chronic respiratory failure with hypercapnia Code(s): J96.91 - Respiratory failure, unspecified with hypoxia; J96.92 - Respiratory failure, unspecified with hypercapnia Status: Acute Assessment and Plan: Improved with diuresis. (4) CHF (congestive heart failure): Qualifiers: Heart failure chronicity: acute on chronic Heart failure type: diastolic Qualified Code(s): I50.33 - Acute on chronic diastolic (congestive) heart failure Code(s): I50.9 - Heart failure, unspecified Status: Acute Assessment and Plan: Echo is pending (5) HTN (hypertension): Qualifiers: Hypertension type: essential hypertension Qualified Code(s): I10 - Essential (primary) hypertension Code(s): I10 - Essential (primary) hypertension Status: Acute Assessment and Plan: Her blood pressure is generous. I do not want to over control in this circumstance especially since we are giving her diuretics. (6) Anemia: Qualifiers: Anemia type: due to chronic kidney disease Chronic kidney disease stage: stage 3 (moderate) Qualified Code(s): N18.3 - Chronic kidney disease, stage 3 (moderate); D63.1 - Anemia in chronic kidney disease Code(s): D64.9 - Anemia, unspecified Status: Acute Assessment and Plan: Her hemoglobin is lower. Will start some Epogen. (7) Type 2 diabetes mellitus with hyperglycemia: Qualifiers: Diabetes mellitus mcc insulin use: with mcc use Qualified Code(s): E11.65 - Type 2 diabetes mellitus with hyperglycemia; Z79.4 - terminal make up operator (current) use of insulin Code(s): E11.65 - Type 2 diabetes mellitus with hyperglycemia Status: Acute Assessment and Plan: On insulin. (8) Hyperkalemia: Code(s): E87.5 - Hyperkalemia Status:
[2019-06-17 08:37] LABS: Glucose Point of Care 120 (65-105)
--- NOTE | 2019-06-17 08:52 | PM.IMPN ---
Progress Note: A&P Assessment and Plan (1) Respiratory failure with hypoxia and hypercapnia: Qualifiers: Chronicity: acute on chronic Qualified Code(s): J96.21 - Acute and chronic respiratory failure with hypoxia; J96.22 - Acute and chronic respiratory failure with hypercapnia Code(s): J96.91 - Respiratory failure, unspecified with hypoxia; J96.92 - Respiratory failure, unspecified with hypercapnia Status: Acute Assessment and Plan: Remains in ICU but clinically much improved. Appreciate help from shop teacher. Now off BiPAP and on oxygen by nasal cannula at 3 L. COVID-19 testing negative. Continue IV ceftriaxone and azithromycin. Continue IV steroids. Continue nebulizer treatments. Discussed with shop teacher. Patient also to receive IV Bumex drip. Will continue to monitor closely. (2) Hyperglycemic crisis due to diabetes mellitus: Code(s): E11.65 - Type 2 diabetes mellitus with hyperglycemia Status: Acute Assessment and Plan: Significant elevation of glucose above 500 on admission. Received regular IV insulin. remains insulin drip at this time. Glucose reviewed on 06/17/2019 and now controlled. Plan to eventual transition to long-acting insulin with sliding scale. Will continue to monitor. Able to transition to Levemir after my visit this morning. (3) Acute kidney injury superimposed on chronic kidney disease: Code(s): N17.9 - Acute kidney failure, unspecified; N18.9 - Chronic kidney disease, unspecified Status: Acute Assessment and Plan: Nephrology consulted and appreciate input. Creatinine unchanged at 1.90 today. Plan for IV Bumex drip with IV Lasix discontinued. Will continue to monitor. (4) CHF (congestive heart failure): Qualifiers: Heart failure chronicity: acute on chronic Heart failure type: diastolic Qualified Code(s): I50.33 - Acute on chronic diastolic (congestive) heart failure Code(s): I50.9 - Heart failure, unspecified Status: Acute Assessment and Plan: Echocardiogram with EF greater than 70%, grade 2 diastolic dysfunction. Pulmonary pressures could not be determined. Now to be on IV Bumex as noted above. Continue oral metoprolol. Will monitor. (5) Suspected COVID-19 virus infection: Code(s): R68.89 - Other general symptoms and signs Status: Ruled-out Assessment and Plan: Suspected on admission but COVID-19 testing is now negative. Already on hydroxychloroquine at home for her sarcoidosis. Continue treatment of other issues as noted. (6) Hyperkalemia: Code(s): E87.5 - Hyperkalemia Status: Acute Assessment and Plan: Received Kayexalate in the ER. Also received sodium bicarb, calcium gluconate and IV insulin. Improved with potassium 3.8 today. Will continue to monitor. (7) HTN (hypertension): Qualifiers: Hypertension type: essential hypertension Qualified Code(s): I10 - Essential (primary) hypertension Code(s): I10 - Essential (primary) hypertension Status: Acute Assessment and Plan: Blood pressure reviewed on 06/17/2019 with some variation but acceptable. Will continue to monitor with IV Bumex, oral metoprolol and Imdur. (8) DVT prophylaxis: Code(s): Z29.9 - Encounter for prophylactic measures, unspecified Status: Acute Assessment and Plan: Heparin subcutaneously. Time Spent With Patient Time with patient: 15 - 25 minutes Subjective Date/time seen: 06/17/19 08:52 Interval history: Date of Service: 06/17/2019. Admitted with acute respiratory failure, hyperglycemia. Feels much better this morning. Denies shortness of breath and cough. No chest pain or pressure. No abdominal pain. No nausea or vomiting. Does have swelling in legs. Review of Systems Review of Systems: Narrative: Feels better. Constitutional: Constitutional: Denies fever(s) ENT: Denies dysphagia Cardiovascular:
[2019-06-17] MEDS: ATORVASTATIN 20 MG TABLET PO (09:45)
[2019-06-17] MEDS: LORATADINE 10 MG TABLET PO (09:45)
[2019-06-17] MEDS: METOPROLOL TARTRATE 25 MG TABLET PO ×2 (09:45→18:48)
[2019-06-17] MEDS: HEPARIN SODIUM 5,000 UNITS/ML VIAL 5000 UNITS SUB-Q ×2 (09:45→21:06)
[2019-06-17] MEDS: PANTOPRAZOLE SODIUM IV 40 MG VIAL IV PUSH (09:45)
[2019-06-17] MEDS: GABAPENTIN 300 MG CAPSULE PO ×3 (09:45→18:47)
[2019-06-17] MEDS: ARIPIPRAZOLE 10 MG TABLET 20 MG PO (09:46)
[2019-06-17] MEDS: DULOXETINE 60 MG CAPSULE.DR PO ×2 (09:46→18:48)
[2019-06-17] MEDS: ISOSORBIDE MONONITRATE 60 MG TAB.ER.24H 120 MG PO (09:46)
[2019-06-17] MEDS: MONTELUKAST SODIUM 10 MG TABLET PO (09:46)
[2019-06-17] MEDS: ACYCLOVIR 400 MG TABLET PO ×2 (09:47→21:06)
[2019-06-17 09:52] LABS: Glucose Point of Care 119 (65-105)
[2019-06-17] MEDS: metOLazone 5 MG TABLET PO (10:02)
[2019-06-17 10:23] LABS: Blood Urea Nitrogen 59 mg/dL (7-17); Calcium 9.1 mg/dL (8.4-10.2); Carbon Dioxide 31 mmol/L (22-30); Chloride 99 mmol/L (98-107); Estimated CRCL calculation 60 ml/min; Estimated Glomerular Filt Rate 30; Glucose 119 mg/dL (65-105); Sodium 137 mmol/L (137-145)
[2019-06-17 11:06] LABS: Glucose Point of Care 115 (65-105)
[2019-06-17] MEDS: INSULIN HUMAN REGULAR (*BKC) 100 UNITS in SODIUM CHLORIDE 0.9% IV 99 ML 11.9 UNITS IV CONT (12:03)
[2019-06-17] MEDS: INSULIN DETEMIR 100 UNITS/ML 30 UNITS SUB-Q (12:04)
[2019-06-17 12:10] LABS: Glucose Point of Care 123 (65-105)
[2019-06-17 12:58] LABS: Glucose Point of Care 119 (65-105)
[2019-06-17 13:52] LABS: Glucose Point of Care 137 (65-105)
[2019-06-17 14:49] LABS: Glucose Point of Care 137 (65-105)
--- NOTE | 2019-06-17 15:35 | PCCDE ---
Consult received 06/15; pt admitted with BG of 596mg/dl and A1c elevated at 11%. Pt has hx of DM treated with insulin. Pt remains on insulin drip in the ICU at this time; will follow and see when more stable.
[2019-06-17 15:59] LABS: Glucose Point of Care 119 (65-105)
[2019-06-17 16:43] LABS: Blood Urea Nitrogen 60 mg/dL (7-17); Calcium 9.1 mg/dL (8.4-10.2); Carbon Dioxide 33 mmol/L (22-30); Chloride 97 mmol/L (98-107); Estimated CRCL calculation 57 ml/min; Estimated Glomerular Filt Rate 28; Glucose 124 mg/dL (65-105); Potassium 3.8 mmol/L (3.4-5.0); Sodium 136 mmol/L (137-145)
[2019-06-17 17:15] LABS: Glucose Point of Care 121 (65-105)
[2019-06-17 18:07] LABS: Glucose Point of Care 120 (65-105)
[2019-06-17 19:07] LABS: Glucose Point of Care 103 (65-105)
[2019-06-17 20:07] LABS: Glucose Point of Care 109 (65-105)
[2019-06-17] MEDS: INSULIN HUMAN REGULAR (*BKC) 100 UNITS in SODIUM CHLORIDE 0.9% IV 99 ML 9.1 UNITS IV CONT (21:02)
[2019-06-17] MEDS: hydrOXYzine pamoate 25 MG CAPSULE PO (21:05)
[2019-06-17] MEDS: INSULIN DETEMIR 100 UNITS/ML 50 UNITS SUB-Q (21:08)
[2019-06-17 21:24] LABS: Glucose Point of Care 108 (65-105)
[2019-06-17 21:57] LABS: Glucose Point of Care 122 (65-105)
[2019-06-17] MEDS: ONDANSETRON INJ 4 MG/2 ML VIAL IV PUSH (22:06)
[2019-06-17 22:52] LABS: Glucose Point of Care 127 (65-105)
[2019-06-18] VITALS (17 sets, daily range): BP systolic 119–163; BP diastolic 51–77; PULSE 60–72; RESP 15–21; TEMP 36.6–37; O2SAT 90–100
[2019-06-18 00:07] LABS: Glucose Point of Care 112 (65-105)
[2019-06-18 00:58] LABS: Glucose Point of Care 97 (65-105)
[2019-06-18 02:11] LABS: Glucose Point of Care 87 (65-105)
[2019-06-18 03:15] LABS: Glucose Point of Care 102 (65-105)
[2019-06-18 04:11] LABS: Glucose Point of Care 109 (65-105)
[2019-06-18] MEDS: ONDANSETRON INJ 4 MG/2 ML VIAL IV PUSH (04:11)
[2019-06-18 04:38] LABS: Hematocrit 27.1 % (37.0-47.0); Hemoglobin 8.8 g/dL (12.0-15.0); Immature Granulocyte Absolute 0.05 K/mm3 (0.00-0.031); Immature Granulocyte Percent A 0.5 % (0-0.5); Lymphocytes Absolute Auto 1.06 K/mm3 (0.9-3.2); Lymphocytes Percent Auto 9.8 % (18.3-44.2); Mean Corpuscular HGB Conc 32.5 g/dl (32-36); Mean Corpuscular Hemoglobin 29.1 pg (26-34); Mean Corpuscular Volume 89.7 fl (80-100); Monocytes Absolute Auto 0.6 K/mm3 (0.1-0.6); Monocytes Percent Auto 5.6 % (2.6-8.5); Neutrophils Absolute Auto 9.1 K/mm3 (1.3-6.7); Neutrophils Percent Auto 84.1 % (45.5-73.1); Platelet Count Result 177 k/mm3 (150-375); Red Blood Count 3.02 M/mm3 (4.2-5.4); White Blood Count 10.8 K/mm3 (4.5-10.0)
[2019-06-18 04:49] LABS: Lactic Acid 0.8 mmol/L (0.7-2.1)
[2019-06-18 04:50] LABS: Albumin Level 3.8 g/dL (3.5-5.1); Blood Urea Nitrogen 64 mg/dL (7-17); Calcium 9.3 mg/dL (8.4-10.2); Carbon Dioxide 38 mmol/L (22-30); Chloride 94 mmol/L (98-107); Estimated CRCL calculation 60 ml/min; Estimated Glomerular Filt Rate 30; Glucose 111 mg/dL (65-105); Magnesium 2.2 mg/dL (1.6-2.3); Phosphorus 5.2 mg/dL (2.5-4.5); Potassium 3.6 mmol/L (3.4-5.0); Sodium 136 mmol/L (137-145)
[2019-06-18 05:13] LABS: Eosinophil Urine 1 % eos
[2019-06-18 05:14] LABS: Glucose Point of Care 100 (65-105)
[2019-06-18 06:12] LABS: Glucose Point of Care 90 (65-105)
--- NOTE | 2019-06-18 07:00 | WPDINTPN ---
Progress Note: A&P Assessment and Plan (1) Respiratory failure with hypoxia and hypercapnia: Qualifiers: Chronicity: acute on chronic Qualified Code(s): J96.21 - Acute and chronic respiratory failure with hypoxia; J96.22 - Acute and chronic respiratory failure with hypercapnia Code(s): J96.91 - Respiratory failure, unspecified with hypoxia; J96.92 - Respiratory failure, unspecified with hypercapnia Status: Acute Assessment and Plan: patient with bilateral infiltrates on chest x-ray, likely related to pneumonia, heart failure, volume overload from S[place]Y - SARS-COV-2 PCR for COVID-19 was negative - patient is being diuresed. with Bumex drip for last 24 hours with good response. will switch to Lasix IV push twice a day - Continue ceftriaxone and azithromycin - patient off of BiPAP at this time and tolerating nasal cannula will use BiPAP p.r.n. and at night patient does have CPAP at home but does not use it - continue bronchodilators - continue Solu-Medrol - echo done. refer to report below (2) Suspected COVID-19 virus infection: Code(s): R68.89 - Other general symptoms and signs Status: Ruled-out Assessment and Plan: SARS-COV-2 PCR was negative (3) CHF (congestive heart failure): Qualifiers: Heart failure chronicity: acute on chronic Heart failure type: diastolic Qualified Code(s): I50.33 - Acute on chronic diastolic (congestive) heart failure Code(s): I50.9 - Heart failure, unspecified Status: Acute Assessment and Plan: patient with history of congestive heart failure. echo shows diastolic heart failure. continue Lasix for volume control. will start Juan inhibitors once renal function is stable and patient is already on beta-mirna ECHO Summary 1. Left ventricular chamber size and systolic function are normal with no regional wall motion abnormalities with an estimated ejection fraction of >70%. Grade 2 diastolic dysfunction is present. Mild left ventricular hypertrophy noted. 2. Mitral annular calcification noted, but otherwise no significant valve disease. 3. There is mild aortic root atherosclerosis. 4. Left atrial chamber dimension is mildly enlarged. 5. Pulmonary pressures could not be determined. 6. Normal sinus rhythm. 7. Technically difficult study. (4) Hyperkalemia: Code(s): E87.5 - Hyperkalemia Status: Acute Assessment and Plan: patient presented with hyperkalemia could be related to acute on chronic kidney disease, - patient was treated for hyperkalemia, - potassium potassium level is normal now will continue monitor (5) Acute kidney injury superimposed on chronic kidney disease: Code(s): N17.9 - Acute kidney failure, unspecified; N18.9 - Chronic kidney disease, unspecified Status: Acute Assessment and Plan: acute on chronic kidney disease could multifactorial. Worsening secondary to diabetes, essential hypertension, obstructive sleep apnea, possible pulmonary hypertension, volume overload. - Appreciate Nephrology evaluation recommendation - creatinine is improving and is 1.8 today - will discontinue Bumex drip and start twice a day Lasix for continued diuresis - will give 1 dose of Diamox for metabolic alkalosis - Continue to monitor renal function, electrolytes and urine output (6) Hyperglycemic crisis due to diabetes mellitus: Code(s): E11.65 - Type 2 diabetes mellitus with hyperglycemia Status: Acute Assessment and Plan: hyperglycemia with blood sugars in the 600s - patient started on insulin infusion and is on very high dose at this time - hemoglobin A1c this admission is 11.0 - I will increase the detemir to 70 twice a day. - Continue insulin infusion and try to wean it down. will transition to subcutaneous insulin once daily requirement on diet is estimated - decreased steroids (7) HTN (hypertension): Qualifiers:
[2019-06-18 07:28] LABS: Glucose Point of Care 91 (65-105)
[2019-06-18 08:13] LABS: Glucose Point of Care 85 (65-105)
--- NOTE | 2019-06-18 08:26 | PM.IMPN ---
Progress Note: A&P Assessment and Plan (1) Respiratory failure with hypoxia and hypercapnia: Qualifiers: Chronicity: acute on chronic Qualified Code(s): J96.21 - Acute and chronic respiratory failure with hypoxia; J96.22 - Acute and chronic respiratory failure with hypercapnia Code(s): J96.91 - Respiratory failure, unspecified with hypoxia; J96.92 - Respiratory failure, unspecified with hypercapnia Status: Acute Assessment and Plan: Remains in ICU but much improved. Appreciate help from architect in training. Only using BiPAP as night as tolerates. Willing to continue to try to use BiPAP. Has CPAP at home. On oxygen by nasal cannula at 2 L. COVID-19 testing negative. Continue IV ceftriaxone and azithromycin. Continue IV steroids. Continue nebulizer treatments. Discussed with architect in training. Continue to monitor in ICU for now. (2) Hyperglycemic crisis due to diabetes mellitus: Code(s): E11.65 - Type 2 diabetes mellitus with hyperglycemia Status: Acute Assessment and Plan: Significant elevation of glucose above 500 on admission. Received regular IV insulin. Glucose reviewed on 06/18/2019 and now controlled. Insulin drip actually only being turned off this morning. Discussed with architect in training. Transition to Levemir this morning. Will continue sliding scale insulin. Will continue to monitor and adjust treatment as needed. (3) Acute kidney injury superimposed on chronic kidney disease: Code(s): N17.9 - Acute kidney failure, unspecified; N18.9 - Chronic kidney disease, unspecified Status: Acute Assessment and Plan: Nephrology consulted and appreciate input. Renal ultrasound with bilateral renal cortical thinning. Creatinine slightly better at 1.80 today but essentially unchanged and stable. Continue to monitor with IV diuretic. (4) CHF (congestive heart failure): Qualifiers: Heart failure chronicity: acute on chronic Heart failure type: diastolic Qualified Code(s): I50.33 - Acute on chronic diastolic (congestive) heart failure Code(s): I50.9 - Heart failure, unspecified Status: Acute Assessment and Plan: Echocardiogram with EF greater than 70%, grade 2 diastolic dysfunction. Pulmonary pressures could not be determined. Transition back to IV Lasix from IV Bumex drip after good diuresis with drip. Venous dopplers lower extremities negative for DVT. Continue oral metoprolol. Will monitor. (5) Hyperkalemia: Code(s): E87.5 - Hyperkalemia Status: Acute Assessment and Plan: Received Kayexalate in the ER. Also received sodium bicarb, calcium gluconate and IV insulin. Potassium remains normal at 3.6 today. Telemetry reviewed on 06/18/2019 with sinus rhythm. Continue to monitor. (6) HTN (hypertension): Qualifiers: Hypertension type: essential hypertension Qualified Code(s): I10 - Essential (primary) hypertension Code(s): I10 - Essential (primary) hypertension Status: Acute Assessment and Plan: Blood pressure reviewed on 06/18/2019 with mild elevation at times but acceptable. Will continue to monitor with diuretic, oral metoprolol and Imdur. (7) Suspected COVID-19 virus infection: Code(s): R68.89 - Other general symptoms and signs Status: Ruled-out Assessment and Plan: Suspected on admission but COVID-19 testing is now negative. Already on hydroxychloroquine at home for her sarcoidosis. Continue treatment of other issues as noted. (8) DVT prophylaxis: Code(s): Z29.9 - Encounter for prophylactic measures, unspecified Status: Acute Assessment and Plan: Heparin subcutaneously. Time Spent With Patient Time with patient: 15 - 25 minutes Subjective Date/time seen: 06/18/19 08:26 Interval history: Date of Service: 06/18/2019. Admitted with acute respiratory failure, hyperglycemia. Feeling much better this morning. Eating breakfast. No sh
--- NOTE | 2019-06-18 09:03 | PM.PNNEP ---
Progress Note: A&P Assessment and Plan (1) Acute kidney injury superimposed on chronic kidney disease: Code(s): N17.9 - Acute kidney failure, unspecified; N18.9 - Chronic kidney disease, unspecified Status: Acute Assessment and Plan: The patient has chronic kidney disease. This is stage III. Most likely this is due to hypertension and diabetes. Obesity and sleep apnea can also cause issues with proteinuria and possibly segmental sclerosis. She has sarcoidosis and sometimes this can affect the kidneys as well. She has had evaluation as an outpatient. It does not seem that her sarcoidosis is active right now. The patient has acute kidney injury. Baseline creatinine Is around 1.5 In spite of 8L of urine output, her creatinine still came a little bit to 1.8. The renal ultrasound shows bilateral cortical thinning. Echocardiogram shows good LV but indeterminate right side. Urine electrolytes are pre renal. Hepatitis studies are negative. COVID test is negative. Sed rate is > 140. CPK is only mildly abnormal. Other serology and immunofixation are pending. At this point looks like she has pre renal azotemia yet she has volume overload. Most likely this is due to severe pulmonary hypertension from her obesity and sleep apnea. Will continue diuretics. (2) Suspected COVID-19 virus infection: Code(s): R68.89 - Other general symptoms and signs Status: Ruled-out Assessment and Plan: The testing is negative. (3) Respiratory failure with hypoxia and hypercapnia: Qualifiers: Chronicity: acute on chronic Qualified Code(s): J96.21 - Acute and chronic respiratory failure with hypoxia; J96.22 - Acute and chronic respiratory failure with hypercapnia Code(s): J96.91 - Respiratory failure, unspecified with hypoxia; J96.92 - Respiratory failure, unspecified with hypercapnia Status: Acute Assessment and Plan: Improved with diuresis. (4) CHF (congestive heart failure): Qualifiers: Heart failure chronicity: acute on chronic Heart failure type: diastolic Qualified Code(s): I50.33 - Acute on chronic diastolic (congestive) heart failure Code(s): I50.9 - Heart failure, unspecified Status: Acute Assessment and Plan: Good LV function. (5) HTN (hypertension): Qualifiers: Hypertension type: essential hypertension Qualified Code(s): I10 - Essential (primary) hypertension Code(s): I10 - Essential (primary) hypertension Status: Acute Assessment and Plan: Her blood pressure is gradually better with diuresis. (6) Anemia: Qualifiers: Anemia type: due to chronic kidney disease Chronic kidney disease stage: stage 3 (moderate) Qualified Code(s): N18.3 - Chronic kidney disease, stage 3 (moderate); D63.1 - Anemia in chronic kidney disease Code(s): D64.9 - Anemia, unspecified Status: Acute Assessment and Plan: Her hemoglobin is just about stable. (7) Type 2 diabetes mellitus with hyperglycemia: Qualifiers: Diabetes mellitus [facility] insulin use: with buttermaker use Qualified Code(s): E11.65 - Type 2 diabetes mellitus with hyperglycemia; Z79.4 - nursing home (current) use of insulin Code(s): E11.65 - Type 2 diabetes mellitus with hyperglycemia Status: Acute Assessment and Plan: On insulin. (8) Hyperkalemia: Code(s): E87.5 - Hyperkalemia Status: Acute Assessment and Plan: Resolved Subjective Date/time seen: 06/18/19 09:03 Interval history: Bettye is feeling better today. She is not on the BiPAP anymore. She had 8L of urine out yesterday.! No chest pain or shortness of breath. She is hungry. She feels better overall. She did not use her CPAP very much last night. Review of Systems Cardiovascular: Cardiovascular: Reports no additional cardiovascular complaints Respiratory: Respiratory: Reports no davion
[2019-06-18] MEDS: EPOETIN ALFA 10,000 UNITS/ML VIAL 10000 UNITS SUB-Q (09:04)
[2019-06-18] MEDS: FUROSEMIDE INJ 100 MG/10 ML VIAL 80 MG IV PUSH ×2 (09:04→17:16)
[2019-06-18] MEDS: ARIPIPRAZOLE 10 MG TABLET 20 MG PO (09:05)
[2019-06-18] MEDS: METOPROLOL TARTRATE 25 MG TABLET PO ×2 (09:05→17:17)
[2019-06-18] MEDS: GABAPENTIN 300 MG CAPSULE PO ×3 (09:05→17:16)
[2019-06-18] MEDS: ATORVASTATIN 20 MG TABLET PO (09:05)
[2019-06-18] MEDS: ISOSORBIDE MONONITRATE 60 MG TAB.ER.24H 120 MG PO (09:06)
[2019-06-18] MEDS: methylPREDNISolone SOD SUCC 125 MG VIAL 60 MG IV PUSH (09:06)
[2019-06-18] MEDS: HEPARIN SODIUM 5,000 UNITS/ML VIAL 5000 UNITS SUB-Q ×2 (09:06→21:18)
[2019-06-18] MEDS: LORATADINE 10 MG TABLET PO (09:06)
[2019-06-18] MEDS: DULOXETINE 60 MG CAPSULE.DR PO ×2 (09:07→17:17)
[2019-06-18] MEDS: PANTOPRAZOLE SODIUM IV 40 MG VIAL IV PUSH (09:07)
[2019-06-18] MEDS: ACYCLOVIR 400 MG TABLET PO ×2 (09:07→21:17)
[2019-06-18] MEDS: MONTELUKAST SODIUM 10 MG TABLET PO (09:07)
[2019-06-18] MEDS: INSULIN DETEMIR 100 UNITS/ML 50 UNITS SUB-Q (09:43)
[2019-06-18 09:54] LABS: Glucose Point of Care 139 (65-105)
[2019-06-18 11:02] LABS: Glucose Point of Care 232 (65-105)
[2019-06-18 11:34] LABS: Procalcitonin 0.33 ng/mL (<0.10)
[2019-06-18] MEDS: WATER, STERILE FOR INJECTION 10 ML VIAL XX (12:31)
[2019-06-18] MEDS: INSULIN HUMAN REGULAR (*BKC) 100 UNITS in SODIUM CHLORIDE 0.9% IV 99 ML 16 UNITS IV CONT (12:50)
[2019-06-18 13:36] LABS: Glucose Point of Care 206 (65-105)
[2019-06-18 14:20] LABS: Glucose Point of Care 231 (65-105)
[2019-06-18 15:25] LABS: Glucose Point of Care 160 (65-105)
[2019-06-18 16:21] LABS: Glucose Point of Care 175 (65-105)
[2019-06-18 16:48] LABS: Blood Urea Nitrogen 66 mg/dL (7-17); Carbon Dioxide > 40 mmol/L (22-30); Chloride 90 mmol/L (98-107); Estimated CRCL calculation 46 ml/min; Estimated Glomerular Filt Rate 22; Glucose 170 mg/dL (65-105); Potassium 3.7 mmol/L (3.4-5.0); Sodium 137 mmol/L (137-145)
[2019-06-18 17:25] LABS: Glucose Point of Care 162 (65-105)
[2019-06-18 18:26] LABS: Glucose Point of Care 206 (65-105)
[2019-06-18] MEDS: INSULIN HUMAN REGULAR (*BKC) 100 UNITS in SODIUM CHLORIDE 0.9% IV 99 ML 19 UNITS IV CONT (19:32)
[2019-06-18 19:38] LABS: Glucose Point of Care 166 (65-105)
[2019-06-18 20:13] LABS: Glucose Point of Care 176 (65-105)
[2019-06-18] MEDS: hydrOXYzine pamoate 25 MG CAPSULE PO (21:17)
[2019-06-18 21:34] LABS: Glucose Point of Care 168 (65-105)
[2019-06-18] MEDS: INSULIN DETEMIR 100 UNITS/ML 70 UNITS SUB-Q (21:34)
[2019-06-18 22:02] LABS: Glucose Point of Care 159 (65-105)
[2019-06-18 22:38] LABS: Pneumococcal Antigen Urine Not Detected (Not Detected)
[2019-06-18 23:09] LABS: Glucose Point of Care 236 (65-105)
[2019-06-18 23:09] LABS: Glucose Point of Care 249 (65-105)
[2019-06-18 23:56] LABS: Glucose Point of Care 222 (65-105)
[2019-06-19] VITALS (14 sets, daily range): BP systolic 114–152; BP diastolic 48–78; PULSE 55–67; RESP 13–19; TEMP 36.4–36.9; O2SAT 90–98
[2019-06-19 00:56] LABS: Glucose Point of Care 197 (65-105)
[2019-06-19] MEDS: INSULIN HUMAN REGULAR (*BKC) 100 UNITS in SODIUM CHLORIDE 0.9% IV 99 ML 21.9 UNITS IV CONT (01:33)
[2019-06-19 02:20] LABS: Glucose Point of Care 144 (65-105)
[2019-06-19 03:12] LABS: Glucose Point of Care 130 (65-105)
[2019-06-19 04:03] LABS: Lambda Light Chain 36.2 mg/L (5.7-26.3)
[2019-06-19 04:13] LABS: Glucose Point of Care 120 (65-105)
[2019-06-19 04:30] LABS: Hematocrit 27.7 % (37.0-47.0); Hemoglobin 9.1 g/dL (12.0-15.0); Mean Corpuscular HGB Conc 32.9 g/dl (32-36); Mean Corpuscular Hemoglobin 29.5 pg (26-34); Mean Corpuscular Volume 89.9 fl (80-100); Mean Platelet Volume 9.1 fl (7.4-10.4); Platelet Count Result 168 k/mm3 (150-375); Red Blood Count 3.08 M/mm3 (4.2-5.4); Red Cell Distribution Width 14.6 % (11.5-14.5)
[2019-06-19 04:42] LABS: Alanine Aminotransferase 31 U/L (4-35); Albumin Level 3.7 g/dL (3.5-5.1); Alkaline Phosphatase 78 U/L (38-126); Aspartate Amino Transferase 31 U/L (14-36); Bilirubin,Total 0.3 mg/dL (0.2-1.3); Blood Urea Nitrogen 72 mg/dL (7-17); Calcium 8.9 mg/dL (8.4-10.2); Carbon Dioxide 39 mmol/L (22-30); Chloride 91 mmol/L (98-107); Estimated CRCL calculation 48 ml/min; Estimated Glomerular Filt Rate 23; Glucose 116 mg/dL (65-105); Magnesium 2.2 mg/dL (1.6-2.3); Potassium 3.4 mmol/L (3.4-5.0); Sodium 136 mmol/L (137-145)
[2019-06-19 05:12] LABS: Glucose Point of Care 106 (65-105)
[2019-06-19 06:14] LABS: Glucose Point of Care 87 (65-105)
--- NOTE | 2019-06-19 07:00 | WPDINTPN ---
Progress Note: A&P Assessment and Plan (1) Respiratory failure with hypoxia and hypercapnia: Qualifiers: Chronicity: acute on chronic Qualified Code(s): J96.21 - Acute and chronic respiratory failure with hypoxia; J96.22 - Acute and chronic respiratory failure with hypercapnia Code(s): J96.91 - Respiratory failure, unspecified with hypoxia; J96.92 - Respiratory failure, unspecified with hypercapnia Status: Acute Assessment and Plan: patient with bilateral infiltrates on chest x-ray, likely related to pneumonia, heart failure, volume overload from [place] - SARS-COV-2 PCR for COVID-19 was negative - patient was diuresed. she was on Bumex drip and then was switched to Lasix IV push twice a day yesterday - will hold further Lasix due to elevation in creatinine - Continue ceftriaxone and azithromycin - patient off of BiPAP at this time and tolerating nasal cannula will use BiPAP p.r.n. and at night patient does have CPAP at home but does not use it - continue bronchodilators - Solu-Medrol tapered off - echo done. refer to report below (2) Suspected COVID-19 virus infection: Code(s): R68.89 - Other general symptoms and signs Status: Ruled-out Assessment and Plan: SARS-COV-2 PCR was negative (3) CHF (congestive heart failure): Qualifiers: Heart failure chronicity: acute on chronic Heart failure type: diastolic Qualified Code(s): I50.33 - Acute on chronic diastolic (congestive) heart failure Code(s): I50.9 - Heart failure, unspecified Status: Acute Assessment and Plan: patient with history of congestive heart failure. echo shows diastolic heart failure. continue Lasix for volume control. will start Juan inhibitors once renal function is stable and patient is already on beta-mirna ECHO Summary 1. Left ventricular chamber size and systolic function are normal with no regional wall motion abnormalities with an estimated ejection fraction of >70%. Grade 2 diastolic dysfunction is present. Mild left ventricular hypertrophy noted. 2. Mitral annular calcification noted, but otherwise no significant valve disease. 3. There is mild aortic root atherosclerosis. 4. Left atrial chamber dimension is mildly enlarged. 5. Pulmonary pressures could not be determined. 6. Normal sinus rhythm. 7. Technically difficult study. (4) Hyperkalemia: Code(s): E87.5 - Hyperkalemia Status: Acute Assessment and Plan: patient presented with hyperkalemia could be related to acute on chronic kidney disease, - patient was treated for hyperkalemia, - potassium potassium level is low normal now will replace (5) Acute kidney injury superimposed on chronic kidney disease: Code(s): N17.9 - Acute kidney failure, unspecified; N18.9 - Chronic kidney disease, unspecified Status: Acute Assessment and Plan: acute on chronic kidney disease could multifactorial. Worsening secondary to diabetes, essential hypertension, obstructive sleep apnea, possible pulmonary hypertension, volume overload. - Appreciate Nephrology evaluation recommendation - creatinine slightly increased to 2.2 today - patient was on Lasix for continued diuresis. will hold at this time due to elevation in creatinine - Continue to monitor renal function, electrolytes and urine output (6) Hyperglycemic crisis due to diabetes mellitus: Code(s): E11.65 - Type 2 diabetes mellitus with hyperglycemia Status: Acute Assessment and Plan: hyperglycemia with blood sugars in the 600s - patient has been on high-dose insulin infusion throughout - hemoglobin A1c this admission is 11.0 - patient's detemir has been increased to 70 twice a day. - I will switch patient to subcutaneous with meal insulin along with sliding scale today - (7) HTN (hypertension): Qualifiers: Hypertension type: essential hypertension Qualified Cod
[2019-06-19 07:34] LABS: Glucose Point of Care 117 (65-105)
[2019-06-19] MEDS: HEPARIN SODIUM 5,000 UNITS/ML VIAL 5000 UNITS SUB-Q ×2 (08:12→22:00)
[2019-06-19] MEDS: PANTOPRAZOLE SODIUM IV 40 MG VIAL IV PUSH (08:12)
[2019-06-19] MEDS: METOPROLOL TARTRATE 25 MG TABLET PO ×2 (08:13→16:36)
[2019-06-19] MEDS: POTASSIUM CHLORIDE 20 MEQ TABLET 40 MEQ PO (08:13)
[2019-06-19] MEDS: GABAPENTIN 300 MG CAPSULE PO ×3 (08:13→16:36)
[2019-06-19] MEDS: MONTELUKAST SODIUM 10 MG TABLET PO (08:13)
[2019-06-19] MEDS: ISOSORBIDE MONONITRATE 60 MG TAB.ER.24H 120 MG PO (08:14)
[2019-06-19] MEDS: ARIPIPRAZOLE 10 MG TABLET 20 MG PO (08:15)
[2019-06-19] MEDS: LORATADINE 10 MG TABLET PO (08:15)
[2019-06-19] MEDS: ATORVASTATIN 20 MG TABLET PO (08:15)
[2019-06-19] MEDS: ACYCLOVIR 400 MG TABLET PO ×2 (08:16→22:01)
[2019-06-19] MEDS: DULOXETINE 60 MG CAPSULE.DR PO ×2 (08:17→16:36)
[2019-06-19] MEDS: INSULIN DETEMIR 100 UNITS/ML 70 UNITS SUB-Q ×2 (08:26→22:04)
[2019-06-19] MEDS: INSULIN ASPART (*BKC) 100 UNITS/ML 25 UNITS SUB-Q ×3 (08:30→17:12)
--- NOTE | 2019-06-19 08:51 | PM.IMPN ---
Progress Note: A&P Assessment and Plan (1) Respiratory failure with hypoxia and hypercapnia: Qualifiers: Chronicity: acute on chronic Qualified Code(s): J96.21 - Acute and chronic respiratory failure with hypoxia; J96.22 - Acute and chronic respiratory failure with hypercapnia Code(s): J96.91 - Respiratory failure, unspecified with hypoxia; J96.92 - Respiratory failure, unspecified with hypercapnia Status: Acute Assessment and Plan: Remains in ICU but much improved. Appreciate help from industrial engineering director. Continues to use BiPAP only at night. On oxygen by nasal cannula at 2 L during the day. COVID-19 testing negative. Remains on IV ceftriaxone and azithromycin. No longer on IV steroids. Discussed with industrial engineering director. Castillo catheter discontinued. Will monitor with plan to transfer to medical floor as long as stable by this afternoon. Patient remained stable today. Transfer to medical floor. (2) Hyperglycemic crisis due to diabetes mellitus: Code(s): E11.65 - Type 2 diabetes mellitus with hyperglycemia Status: Acute Assessment and Plan: Significant elevation of glucose above 500 on admission. Received regular IV insulin. Was on insulin drip again overnight. Discussed with industrial engineering director. Insulin drip discontinued. Transition to Levemir and sliding scale insulin once again. Being allowed to eat. Glucose reviewed on 06/19/2019 with control now acceptable. Will continue to monitor. (3) Acute kidney injury superimposed on chronic kidney disease: Code(s): N17.9 - Acute kidney failure, unspecified; N18.9 - Chronic kidney disease, unspecified Status: Acute Assessment and Plan: Nephrology consulted and appreciate input. Renal ultrasound with bilateral renal cortical thinning. Creatinine slightly higher at 2.20 today. IV Lasix discontinued. Will continue to monitor. (4) CHF (congestive heart failure): Qualifiers: Heart failure chronicity: acute on chronic Heart failure type: diastolic Qualified Code(s): I50.33 - Acute on chronic diastolic (congestive) heart failure Code(s): I50.9 - Heart failure, unspecified Status: Acute Assessment and Plan: Echocardiogram with EF greater than 70%, grade 2 diastolic dysfunction. Pulmonary pressures could not be determined. Transition back to IV Lasix from IV Bumex drip on 06/18/2019. As noted above. IV Lasix this continued today due to increasing creatinine. Venous Dopplers of the lower extremities negative for DVT. Continue oral metoprolol. Will monitor. (5) Hyperkalemia: Code(s): E87.5 - Hyperkalemia Status: Acute Assessment and Plan: Received Kayexalate in the ER. Also received sodium bicarb, calcium gluconate and IV insulin. Potassium 3.4 today. Telemetry reviewed on 06/19/2019 with sinus rhythm. Will continue to monitor. (6) HTN (hypertension): Qualifiers: Hypertension type: essential hypertension Qualified Code(s): I10 - Essential (primary) hypertension Code(s): I10 - Essential (primary) hypertension Status: Acute Assessment and Plan: Blood pressure reviewed on 06/19/2019 and now stable. Will continue to monitor on metoprolol and Imdur. (7) Suspected COVID-19 virus infection: Code(s): R68.89 - Other general symptoms and signs Status: Ruled-out Assessment and Plan: Suspected on admission but COVID-19 testing is now negative. Already on hydroxychloroquine at home for her sarcoidosis. Continue treatment of other issues as noted. (8) DVT prophylaxis: Code(s): Z29.9 - Encounter for prophylactic measures, unspecified Status: Acute Assessment and Plan: Heparin subcutaneously. Subjective Date/time seen: 06/19/19 08:51 Interval history: Date of Service: 06/19/2019. Admitted with acute respiratory failure, hyperglycemia. Sitting in chair eating breakfast. Feels good. No chest pain or sh
[2019-06-19 12:00] LABS: Glucose Point of Care 197 (65-105)
--- NOTE | 2019-06-19 12:34 | PM.PNNEP ---
Progress Note: A&P Assessment and Plan (1) Acute kidney injury superimposed on chronic kidney disease: Code(s): N17.9 - Acute kidney failure, unspecified; N18.9 - Chronic kidney disease, unspecified Status: Acute Assessment and Plan: The patient has chronic kidney disease. This is stage III. Most likely this is due to hypertension and diabetes. Obesity and sleep apnea can also cause issues with proteinuria and possibly segmental sclerosis. She has sarcoidosis and sometimes this can affect the kidneys as well. She has had evaluation as an outpatient. It does not seem that her sarcoidosis is active right now. The patient has acute kidney injury. Baseline creatinine Is around 1.5 She has pre renal azotemia superimposed on CKD. At 1st her creatinine was improving with diuresis, felt to be due to improvement in renal venous hypertension. However now her creatinine is rising and so I think she just might be intravascularly volume depleted. She still has lots of swelling most likely from her severe pulmonary hypertension. Diuretics have been held and we will watch the creatinine as we go. (2) Suspected COVID-19 virus infection: Code(s): R68.89 - Other general symptoms and signs Status: Ruled-out Assessment and Plan: The testing is negative. (3) Respiratory failure with hypoxia and hypercapnia: Qualifiers: Chronicity: acute on chronic Qualified Code(s): J96.21 - Acute and chronic respiratory failure with hypoxia; J96.22 - Acute and chronic respiratory failure with hypercapnia Code(s): J96.91 - Respiratory failure, unspecified with hypoxia; J96.92 - Respiratory failure, unspecified with hypercapnia Status: Acute Assessment and Plan: Improved with diuresis. (4) CHF (congestive heart failure): Qualifiers: Heart failure chronicity: acute on chronic Heart failure type: diastolic Qualified Code(s): I50.33 - Acute on chronic diastolic (congestive) heart failure Code(s): I50.9 - Heart failure, unspecified Status: Acute Assessment and Plan: Good LV function. (5) HTN (hypertension): Qualifiers: Hypertension type: essential hypertension Qualified Code(s): I10 - Essential (primary) hypertension Code(s): I10 - Essential (primary) hypertension Status: Acute Assessment and Plan: Her blood pressure is better, with a systolic in the 140s. (6) Anemia: Qualifiers: Anemia type: due to chronic kidney disease Chronic kidney disease stage: stage 3 (moderate) Qualified Code(s): N18.3 - Chronic kidney disease, stage 3 (moderate); D63.1 - Anemia in chronic kidney disease Code(s): D64.9 - Anemia, unspecified Status: Acute Assessment and Plan: Her hemoglobin is gradually improving. It is up to 9.1 now. (7) Type 2 diabetes mellitus with hyperglycemia: Qualifiers: Diabetes mellitus corporate director talent assessment insulin use: with corporate director talent assessment use Qualified Code(s): E11.65 - Type 2 diabetes mellitus with hyperglycemia; Z79.4 - residential (current) use of insulin Code(s): E11.65 - Type 2 diabetes mellitus with hyperglycemia Status: Acute Assessment and Plan: On insulin. (8) Hyperkalemia: Code(s): E87.5 - Hyperkalemia Status: Acute Assessment and Plan: Resolved Subjective Date/time seen: 06/19/19 12:34 Interval history: Bettye is feeling better today. Eating well. No chest pain or shortness of Breath Review of Systems Cardiovascular: Cardiovascular: Reports no additional cardiovascular complaints Respiratory: Respiratory: Reports no additional respiratory complaints Gastrointestinal: Gastrointestinal: Reports no additional gastrointestinal complaints Genitourinary: Genitourinary: Reports no additional female genitourinary complaints Exam Narrative: Exam Narrative: Well developed well-nourished in no acute distress Lungs de
[2019-06-19 13:59] LABS: Glucose Point of Care 217 (65-105)
[2019-06-19 16:31] LABS: Glucose Point of Care 177 (65-105)
[2019-06-19 17:29] LABS: Legionella pneumophila Ag Ur Not Detected (Not Detected)
--- NOTE | 2019-06-19 17:55 | PC.NURSE ---
This patient, Bettye Parada, was transferred to [[facility] ] on 06/19/19 at 1745. Personal belongings sent with patient. Belongings list checked and signed with receiving [ ]. Report given to [narciso ]. Appropriate documentation sent with patient.
[2019-06-19] MEDS: hydrOXYzine pamoate 25 MG CAPSULE PO (22:01)
[2019-06-19 23:46] LABS: Glucose Point of Care 182 (65-105)
[2019-06-20] VITALS (8 sets, daily range): BP systolic 150; BP diastolic 61; PULSE 53–67; RESP 20; TEMP 36; O2SAT 89–99
[2019-06-20 05:43] LABS: Hematocrit 30.8 % (37.0-47.0); Hemoglobin 9.8 g/dL (12.0-15.0); Mean Corpuscular HGB Conc 31.8 g/dl (32-36); Mean Corpuscular Hemoglobin 29.1 pg (26-34); Mean Corpuscular Volume 91.4 fl (80-100); Mean Platelet Volume 9.4 fl (7.4-10.4); Platelet Count Result 168 k/mm3 (150-375); Red Blood Count 3.37 M/mm3 (4.2-5.4); Red Cell Distribution Width 14.5 % (11.5-14.5); White Blood Count 8.6 K/mm3 (4.5-10.0)
[2019-06-20 05:56] LABS: Alanine Aminotransferase 38 U/L (4-35); Albumin Level 3.6 g/dL (3.5-5.1); Alkaline Phosphatase 76 U/L (38-126); Aspartate Amino Transferase 41 U/L (14-36); Bilirubin,Total 0.4 mg/dL (0.2-1.3); Blood Urea Nitrogen 67 mg/dL (7-17); Calcium 8.7 mg/dL (8.4-10.2); Carbon Dioxide 36 mmol/L (22-30); Chloride 93 mmol/L (98-107); Estimated CRCL calculation 55 ml/min; Estimated Glomerular Filt Rate 28; Glucose 175 mg/dL (65-105); Magnesium 2.4 mg/dL (1.6-2.3); Phosphorus 4.2 mg/dL (2.5-4.5); Potassium 3.5 mmol/L (3.4-5.0); Sodium 135 mmol/L (137-145)
[2019-06-20 07:46] LABS: Glucose Point of Care 151 (65-105)
[2019-06-20] MEDS: INSULIN DETEMIR 100 UNITS/ML 70 UNITS SUB-Q (07:59)
[2019-06-20] MEDS: INSULIN ASPART (*BKC) 100 UNITS/ML 25 UNITS SUB-Q ×2 (08:00→11:40)
[2019-06-20] MEDS: ARIPIPRAZOLE 10 MG TABLET 20 MG PO (08:01)
[2019-06-20] MEDS: LORATADINE 10 MG TABLET PO (08:02)
[2019-06-20] MEDS: MONTELUKAST SODIUM 10 MG TABLET PO (08:02)
[2019-06-20] MEDS: METOPROLOL TARTRATE 25 MG TABLET PO (08:02)
[2019-06-20] MEDS: GABAPENTIN 300 MG CAPSULE PO ×2 (08:02→12:27)
[2019-06-20] MEDS: ACYCLOVIR 400 MG TABLET PO (08:02)
[2019-06-20] MEDS: ISOSORBIDE MONONITRATE 60 MG TAB.ER.24H 120 MG PO (08:02)
[2019-06-20] MEDS: DULOXETINE 60 MG CAPSULE.DR PO (08:02)
[2019-06-20] MEDS: ATORVASTATIN 20 MG TABLET PO (08:02)
[2019-06-20] MEDS: HEPARIN SODIUM 5,000 UNITS/ML VIAL 5000 UNITS SUB-Q (08:02)
[2019-06-20] MEDS: PANTOPRAZOLE SODIUM IV 40 MG VIAL IV PUSH (08:03)
--- NOTE | 2019-06-20 08:45 | PM.IMPN ---
Progress Note: A&P Assessment and Plan (1) Respiratory failure with hypoxia and hypercapnia: Qualifiers: Chronicity: acute on chronic Qualified Code(s): J96.21 - Acute and chronic respiratory failure with hypoxia; J96.22 - Acute and chronic respiratory failure with hypercapnia Code(s): J96.91 - Respiratory failure, unspecified with hypoxia; J96.92 - Respiratory failure, unspecified with hypercapnia Status: Acute Assessment and Plan: Transferred from ICU to medical floor on 06/19/2019. Clinically has significantly improved. Is still using BiPAP at night. On oxygen by nasal cannula now down to 1 L. Does not use oxygen at home. Will do home oxygen evaluation. Has been on IV ceftriaxone and azithromycin will not continue antibiotics as this does not appear to be infectious in origin. COVID-19 testing negative. Hopeful discharge today as long as okay with Nephrology. Patient remained stable today. Transfer to medical floor. (2) Hyperglycemic crisis due to diabetes mellitus: Code(s): E11.65 - Type 2 diabetes mellitus with hyperglycemia Status: Acute Assessment and Plan: Significant elevation of glucose above 500 on admission. Received regular IV insulin. Has been off and on insulin drip a few times during this stay. Now on Levemir with sliding scale insulin. Glucose reviewed on 06/20/2019 with good control. Will continue current treatment. Patient will need to continue to monitor after discharge. (3) Acute kidney injury superimposed on chronic kidney disease: Code(s): N17.9 - Acute kidney failure, unspecified; N18.9 - Chronic kidney disease, unspecified Status: Acute Assessment and Plan: Nephrology consulted and appreciate input. Renal ultrasound with bilateral renal cortical thinning. Creatinine decreasing again today to 1.90 with discontinuation of IV Lasix. Patient is on oral Lasix at home. Await Nephrology evaluation today. Will need to continue to monitor renal function while still in hospital as well as after discharge. (4) CHF (congestive heart failure): Qualifiers: Heart failure chronicity: acute on chronic Heart failure type: diastolic Qualified Code(s): I50.33 - Acute on chronic diastolic (congestive) heart failure Code(s): I50.9 - Heart failure, unspecified Status: Acute Assessment and Plan: Echocardiogram with EF greater than 70%, grade 2 diastolic dysfunction. Pulmonary pressures could not be determined but does have known sleep apnea. Previously on IV Lasix then IV Bumex drip then back to IV Lasix with IV Lasix discontinued yesterday due to increasing creatinine. Venous Dopplers of the lower extremities negative for DVT. Currently not on any diuretic but does normally take high-dose oral Lasix at home. Will continue metoprolol. Will continue to monitor here. (5) Sleep apnea: Qualifiers: Sleep apnea type: obstructive Qualified Code(s): G47.33 - Obstructive sleep apnea (adult) (pediatric) Code(s): G47.30 - Sleep apnea, unspecified Status: Acute Assessment and Plan: Does have BiPAP at home already but has not been using faithfully as difficult for her. Has been using BiPAP here. Willing to continue to work with BiPAP at home. Inadequately treated sleep apnea contributing to respiratory problems. (6) Hyperkalemia: Code(s): E87.5 - Hyperkalemia Status: Acute Assessment and Plan: Received Kayexalate in the ER. Also received sodium bicarb, calcium gluconate and IV insulin. Potassium remains normal at 3.5 today. (7) HTN (hypertension): Qualifiers: Hypertension type: essential hypertension Qualified Code(s): I10 - Essential (primary) hypertension Code(s): I10 - Essential (primary) hypertension Status: Acute Assessment and Plan: Blood pressure reviewed on 06/20/2019 with some variation but stable. Will continue to monitor on metoprol
--- NOTE | 2019-06-20 11:21 | PM.PNNEP ---
Progress Note: A&P Assessment and Plan (1) Acute kidney injury superimposed on chronic kidney disease: Code(s): N17.9 - Acute kidney failure, unspecified; N18.9 - Chronic kidney disease, unspecified Status: Acute Assessment and Plan: The patient has chronic kidney disease. This is stage III. Most likely this is due to hypertension and diabetes. Obesity and sleep apnea can also cause issues with proteinuria and possibly segmental sclerosis. She has sarcoidosis and sometimes this can affect the kidneys as well. She has had evaluation as an outpatient. It does not seem that her sarcoidosis is active right now. The patient has acute kidney injury. Baseline creatinine Is around 1.5 Her creatinine still above baseline mildly. It is much better than yesterday and the day before. At the began restart her diuretics. Will give Bumex 2 mg a day for now. Okay for discharge She can follow up in my office or with PCP if he wishes to follow this aspect. (2) Suspected COVID-19 virus infection: Code(s): R68.89 - Other general symptoms and signs Status: Ruled-out Assessment and Plan: The testing is negative. (3) Respiratory failure with hypoxia and hypercapnia: Qualifiers: Chronicity: acute on chronic Qualified Code(s): J96.21 - Acute and chronic respiratory failure with hypoxia; J96.22 - Acute and chronic respiratory failure with hypercapnia Code(s): J96.91 - Respiratory failure, unspecified with hypoxia; J96.92 - Respiratory failure, unspecified with hypercapnia Status: Acute Assessment and Plan: Improved with diuresis. (4) CHF (congestive heart failure): Qualifiers: Heart failure chronicity: acute on chronic Heart failure type: diastolic Qualified Code(s): I50.33 - Acute on chronic diastolic (congestive) heart failure Code(s): I50.9 - Heart failure, unspecified Status: Acute Assessment and Plan: Good LV function. Mostly right-sided issues. (5) HTN (hypertension): Qualifiers: Hypertension type: essential hypertension Qualified Code(s): I10 - Essential (primary) hypertension Code(s): I10 - Essential (primary) hypertension Status: Acute Assessment and Plan: Her blood pressure is better, but is variable. Systolic runs between 110 and 150 (6) Anemia: Qualifiers: Anemia type: due to chronic kidney disease Chronic kidney disease stage: stage 3 (moderate) Qualified Code(s): N18.3 - Chronic kidney disease, stage 3 (moderate); D63.1 - Anemia in chronic kidney disease Code(s): D64.9 - Anemia, unspecified Status: Acute Assessment and Plan: Her hemoglobin is gradually improving. It is up to 9.8 now. (7) Type 2 diabetes mellitus with hyperglycemia: Qualifiers: Diabetes mellitus bed bug exterminator insulin use: with bed bug exterminator use Qualified Code(s): E11.65 - Type 2 diabetes mellitus with hyperglycemia; Z79.4 - termite control servicer (current) use of insulin Code(s): E11.65 - Type 2 diabetes mellitus with hyperglycemia Status: Acute Assessment and Plan: On insulin. (8) Hyperkalemia: Code(s): E87.5 - Hyperkalemia Status: Acute Assessment and Plan: Resolved Subjective Date/time seen: 06/20/19 11:21 Interval history: Bettye is feeling better today. Did not use CPAP at all last night because with transfer it was not set up in time. No shortness of breath. Swelling is better. Review of Systems Cardiovascular: Cardiovascular: Reports no additional cardiovascular complaints Respiratory: Respiratory: Reports no additional respiratory complaints Gastrointestinal: Gastrointestinal: Reports no additional gastrointestinal complaints Genitourinary: Genitourinary: Reports no additional female genitourinary complaints Exam Narrative: Exam Narrative: Well developed well-nourished in no acute distress Lungs decreased breath
[2019-06-20] MEDS: EPOETIN ALFA 10,000 UNITS/ML VIAL 10000 UNITS SUB-Q (11:26)
[2019-06-20 11:41] LABS: Glucose Point of Care 167 (65-105)
--- NOTE | 2019-06-20 11:59 | HOMEO2EVAL ---
Home Oxygen Evaluation RC: Home Oxygen (O2) Evaluation Start: 06/20/19 10:30 Freq: ONCE Status: Active Protocol: RPE Activity Type Activity Date Activity User E-Sign Co-Sign Detail Recorded Client Recorded Date Recorded By Document 06/20/19 11:30 KRM [email or web address] 06/20/19 11:57 KRM Document 06/20/19 11:35 KRM [email or web address] 06/20/19 11:57 KRM Document 06/20/19 11:37 KRM [email or web address] 06/20/19 11:57 KRM Document 06/20/19 11:56 KRM [email or web address] 06/20/19 11:57 KRM 06/20/19 06/20/19 06/20/19 11:30 11:35 11:37 Home O2 Evaluation Test Phase Resting Exercise Exercise Oxygen Delivery Room Air Room Air Room Air Pulse Oximetry (90-100 %) 95 89 L 89 L Pulse Rate (60-100 beats/min) 54 L 54 L 60 Activity Tolerance Good Good Ambulation Distance (feet) Treatment Charges O2 Evaluation 06/20/19 11:56 Home O2 Evaluation Test Phase Resting Oxygen Delivery Room Air Pulse Oximetry (90-100 %) 94 Pulse Rate (60-100 beats/min) 67 Activity Tolerance Ambulation Distance (feet) 25 Treatment Charges
--- NOTE | 2019-06-20 11:59 | PCRCNOTE ---
HOME O2 EVALUATION DONE. NO SUPPLEMENTAL O2 NEEDED.
[2019-06-20] MEDS: BUMETANIDE 1 MG TABLET 2 MG PO (12:27)
--- NOTE | 2019-06-20 17:18 | PM.DS ---
DS: Diagnosis Admitting Diagnosis Admitting Diagnosis: Acute and chronic respiratory failure with hypoxia Discharge Diagnosis (1) Respiratory failure with hypoxia and hypercapnia: Qualifiers: Chronicity: acute on chronic Qualified Code(s): J96.21 - Acute and chronic respiratory failure with hypoxia; J96.22 - Acute and chronic respiratory failure with hypercapnia Code(s): J96.91 - Respiratory failure, unspecified with hypoxia; J96.92 - Respiratory failure, unspecified with hypercapnia Status: Acute (2) Hyperglycemic crisis due to diabetes mellitus: Code(s): E11.65 - Type 2 diabetes mellitus with hyperglycemia Status: Acute (3) Acute kidney injury superimposed on chronic kidney disease: Code(s): N17.9 - Acute kidney failure, unspecified; N18.9 - Chronic kidney disease, unspecified Status: Acute (4) CHF (congestive heart failure): Qualifiers: Heart failure chronicity: acute on chronic Heart failure type: diastolic Qualified Code(s): I50.33 - Acute on chronic diastolic (congestive) heart failure Code(s): I50.9 - Heart failure, unspecified Status: Acute (5) Sleep apnea: Qualifiers: Sleep apnea type: obstructive Qualified Code(s): G47.33 - Obstructive sleep apnea (adult) (pediatric) Code(s): G47.30 - Sleep apnea, unspecified Status: Acute (6) Hyperkalemia: Code(s): E87.5 - Hyperkalemia Status: Acute (7) HTN (hypertension): Qualifiers: Hypertension type: essential hypertension Qualified Code(s): I10 - Essential (primary) hypertension Code(s): I10 - Essential (primary) hypertension Status: Acute (8) Suspected COVID-19 virus infection: Code(s): R68.89 - Other general symptoms and signs Status: Ruled-out DS: Summary Hospital Course Reason for hospitalization: Shortness of breath and anxiety. Hospital Course: Date of Service of Discharge: June 20, 2019. History of Present Illness: Patient is a 53-year-old woman with multiple medical problems including poorly controlled insulin-requiring diabetes, peripheral neuropathy, sarcoidosis of the lungs, COPD, diastolic congestive heart failure, morbid obesity, obstructive sleep apnea and chronic kidney disease stage 3 presented to the emergency room by EMS due to shortness of breath and anxiety. Patient reports being short of breath for approximately 1 month. She has only been using her BiPAP for a few hours each night. She has been sleeping in a chair she is unable to lay down. She has used oxygen in the past but has not used it recently. She has been trying Mucinex without relief symptoms. She has had cough but denies fever, chills, nausea vomiting. No loss of taste or smell. On evaluation in the emergency room patient initially was requiring oxygen move able to wean to room air after receiving IV Lasix and IV Solu-Medrol. She was also noted be hyperglycemic in the emergency room as well as hyperkalemic. She did receive oral Kayexalate in the emergency room. She was admitted due to her acute respiratory failure for further evaluation and treatment. Course in Hospital: Patient was initially admitted to the medical floor but when evaluated by the admitting provider, she was noted to have higher oxygen requirement and increased respiratory distress. As result, she was transferred to the ICU for further evaluation and treatment including lettuce cutter consultation. Patient was placed on BiPAP and initially somewhat confused. As patient remained on BiPAP, mentation improved. She additionally was started on IV Lasix for diuresis. COVID-19 testing was initiated in the emergency room with patient initially isolated. Isolation was discontinued when COVID-19 testing was negative. She continued to remain in the ICU due to both respiratory status as well as glucose levels. With regards to respiratory treatment, she continue to use BiPAP but was able
--- NOTE | 2019-06-22 16:23 | PCCDE ---
Pt was discharged on Monday 06/19 before diabetes education consult completed. Called pt at home today. Pt sts she has had diabetes for a long time and doesn't have any questions. She notes that it is so much easier to follow the diet in the hospital and that her kids are home and cooking good foods etc. Pt v/u of insulin regimen and denies any hypoglycemia. Pt confirms that she has BG testing supplies etc. Discussed A1c results. Pt sts she has an energy project engineer but they have not provided her with a carb ratio to follow. Pt sts her endo is at [facility] and would like to find someone closer. Provided names of endocrinologists in the area. Provided automated logistics specialist contact info and encouraged to call prn.
== END 2019-06-20 13:30 | disposition home health service (06) | DRG 189 ==
LOC: ANHED 23:41 → ANH3MEDSUR 23:50 → ANHICU 06-16 04:51 → ANH2MED 06-20 10:30 → ANHICU 06-24 08:04
PROVIDERS: Internal Medicine; Internal Medicine Nephrology; Admitting Provider Internal Medicine; Emergency Provider Emergency Medicine; PCP Internal Medicine; Visit Provider Hospitalist
DX: J96.21 Acute and chronic respiratory failure with hypoxia (principal); I50.33 Acute on chronic diastolic (congestive) heart failure; N17.9 Acute kidney failure, unspecified; I13.0 Hypertensive heart and chronic kidney disease with heart failure and stage 1 through stage 4 chronic kidney disease, or unspecified chronic kidney disease; Z68.43 Body mass index [BMI] 50.0-59.9, adult; E87.1 Hypo-osmolality and hyponatremia; J96.22 Acute and chronic respiratory failure with hypercapnia; D63.1 Anemia in chronic kidney disease; E11.42 Type 2 diabetes mellitus with diabetic polyneuropathy; E11.22 Type 2 diabetes mellitus with diabetic chronic kidney disease; N18.3 Chronic kidney disease, stage 3 (moderate); J44.9 Chronic obstructive pulmonary disease, unspecified; Z20.828 Contact with and (suspected) exposure to other viral communicable diseases; E11.65 Type 2 diabetes mellitus with hyperglycemia; G47.33 Obstructive sleep apnea (adult) (pediatric); E66.01 Morbid (severe) obesity due to excess calories; E87.5 Hyperkalemia; D86.89 Sarcoidosis of other sites; I87.8 Other specified disorders of veins; F41.9 Anxiety disorder, unspecified; E78.5 Hyperlipidemia, unspecified; K21.9 Gastro-esophageal reflux disease without esophagitis; Z79.4 Long term (current) use of insulin; Z79.899 Other long term (current) drug therapy; Z86.718 Personal history of other venous thrombosis and embolism; Z87.891 Personal history of nicotine dependence
CPT/HCPCS: 36415; 36600; 71045; 76775; 80048; 80053; 80069; 80074; 81001; 82375; 82533; 82550; 82570; 82728; 82805; 83036; 83050; 83520; 83605; 83615; 83735; 83880; 83883; 84100; 84145; 84156; 84300; 84484; 85025; 85027; 85380; 85610; 85652; 85999; 86038; 86039; 86140; 86160; 86480; 87040; 87086; 87449; 87635; 87899; 93005; 93306; 93970; 94002; 94003; 94618; 94640; 96365; 96366; 96375; 96376; 97110; 97116; 97161; 97165; 97530; 97535; 99285; A9270; C9113; G0378; G0379; J0456; J0610; J0696; J1120; J1644; J1815; J1940; J2060; J2405; J2930; J7060; Q4081; U0003

== ENCOUNTER 2019-06-26 21:58 | Inpatient (IN) | payer MEDICARE, MEDICAID, SELFPAY ==
--- NOTE | ~2019-06-26 | XR_ITS ---
XR chest 2V 06/26/2019 22:45 Indication: Pain and shortness of breath Procedure: 2 view chest Comparison: No prior studies for comparison. Findings: There is bilateral perihilar airspace disease. Cardiomegaly. No pleural effusion or pneumot horax. No acute osseous abnormality. Impression: 1: Cardiomegaly with bilateral perihilar airspace disease, suspicious for edema versus pneumonia. Reviewed, dictated and finalized at location A. Impression: 1: Cardiomegaly with bilateral perihilar airspace disease, suspicious for edema versus pneumonia.
[2019-06-26 22:01] VITALS: BP 141/50; PULSE 91; RESP 22; TEMP 36.4; O2SAT 97
--- NOTE | 2019-06-26 22:07 | ECG_ITS ---
Measurements Intervals [place] Rate: 87 P: -30 [place]: 179 QRS: -17 QRSD: 123 T: 108 QT: 403 QTc: 487 Interpretive Statements SINUS RHYTHM INTRAVENTRICULAR CONDUCTION DELAY VOLTAGE CRITERIA FOR LVH POOR R WAVE PROGRESSION, ANTERIOR LEADS MINIMAL Q WAVES- HIGH LATERAL LEADS ST-T WAVE ABNORMALITY IN HIGH LATERAL LEADS- CONSIDER ISCHEMIA ABNORMAL ECG Electronically Signed On 06-27-2019 7:19:25 CDT by Ant Narayan D.O.
[2019-06-26 23:04] LABS: Basophils Percent Auto 0.5 % (0.2-1.2); Eosinophils Absolute Auto 0.5 K/mm3 (0-0.3); Eosinophils Percent Auto 5.5 % (0-4.4); Hematocrit 28.5 % (37.0-47.0); Hemoglobin 9.5 g/dL (12.0-15.0); Immature Granulocyte Absolute 0.05 K/mm3 (0.00-0.031); Immature Granulocyte Percent A 0.6 % (0-0.5); Lymphocytes Absolute Auto 0.54 K/mm3 (0.9-3.2); Lymphocytes Percent Auto 6.2 % (18.3-44.2); Mean Corpuscular HGB Conc 33.3 g/dl (32-36); Mean Corpuscular Hemoglobin 29.6 pg (26-34); Mean Corpuscular Volume 88.8 fl (80-100); Mean Platelet Volume 10.3 fl (7.4-10.4); Monocytes Absolute Auto 0.6 K/mm3 (0.1-0.6); Monocytes Percent Auto 6.7 % (2.6-8.5); Neutrophils Absolute Auto 7.1 K/mm3 (1.3-6.7); Neutrophils Percent Auto 80.5 % (45.5-73.1); Platelet Count Result 163 k/mm3 (150-375); Red Blood Count 3.21 M/mm3 (4.2-5.4); Red Cell Distribution Width 14.5 % (11.5-14.5); White Blood Count 8.8 K/mm3 (4.5-10.0)
[2019-06-26 23:23] LABS: Blood Urea Nitrogen 57 mg/dL (7-17); Calcium 9.3 mg/dL (8.4-10.2); Carbon Dioxide 25 mmol/L (22-30); Chloride 95 mmol/L (98-107); Estimated CRCL calculation 57 ml/min; Estimated Glomerular Filt Rate 30; Glucose 505 mg/dL (65-105); Potassium 5.5 mmol/L (3.4-5.0); Sodium 131 mmol/L (137-145)
[2019-06-27] VITALS (20 sets, daily range): BP systolic 124–153; BP diastolic 50–75; PULSE 62–82; RESP 15–22; TEMP 36.1–37.3; O2SAT 95–98; BMI 56.1
--- NOTE | 2019-06-27 00:15 | ED.SOB ---
HPI - SOB/Dyspnea General Chief Complaint: Shortness of Breath/Dyspnea Stated Complaint: SOB Time Seen by Provider: 06/26/19 23:32 Source: patient Mode of arrival: ambulatory Limitations: no limitations History of Present Illness HPI Narrative: Patient is a 53-year-old female who presents to the emergency department complaint of shortness of breath. Patient was admitted to the hospital on 06/16/2019 for respiratory failure, which appears to have been primarily due to congestive heart failure. Patient was tested for COVID-19 and found to be negative. Patient was initially treated for pneumonia with antibiotics, but these were also discontinued in favor of diuresis which was helping patient improve and CHF was felt to be the cause of her respiratory failure. Patient reports ongoing shortness of breath. Patient states she feels confused. Patient is concerned that she has coronavirus. Patient has bilateral lower extremity swelling is being treated by home health for a wound on her leg. Patient states swelling got better while she was in the hospital on diuretics, but has worsened since going home. Patient claims that she is adhering to a low-sodium diet. Patient had a telehealth visit with Dr. Dowell and was advised to increase her Bumex due to increased lower extremity swelling. Patient states she has been taking the increased dose for the past few days. MD elicited complaint: shortness of breath Pertinent past history: COPD, congestive heart failure, diabetes and pneumonia Onset (ago): week(s) Timing: constant Known history of: congestive heart failure Associated symptoms: chest pain Related Data Home Medications Medication Instructions Recorded Confirmed aripiprazole [Abilify] 20 mg PO DAILY 03/05/19 06/27/19 atorvastatin 20 mg PO DAILY 03/05/19 06/27/19 cetirizine [Zyrtec] 10 mg PO DAILY 03/05/19 06/27/19 duloxetine [Cymbalta] 60 mg PO BID 03/05/19 06/27/19 gabapentin 300 mg PO TID 03/05/19 06/27/19 hydroxychloroquine [Plaquenil] 200 mg PO BID 03/05/19 06/27/19 hydroxyzine pamoate [Vistaril] 25 mg PO HS 03/05/19 06/27/19 isosorbide mononitrate 120 mg PO DAILY 03/05/19 06/27/19 metoprolol tartrate 25 mg PO BID 03/05/19 06/27/19 montelukast 10 mg PO DAILY 03/05/19 06/27/19 oxycodone-acetaminophen 10 mg-325 1 tablet PO Q8H PRN 06/03/19 06/27/19 mg tablet Allergies Allergy/AdvReac Type Severity Reaction Status Date / Time shellfish derived Allergy Severe Swelling Verified 06/27/19 04:40 iodine Allergy Mild Swelling Verified 06/27/19 04:40 penicillin G Allergy Mild Hives Verified 06/27/19 04:40 Penicillins Allergy Mild Hives Verified 06/27/19 04:40 Sulfa (Sulfonamide Allergy Mild hives Verified 06/27/19 04:40 Antibiotics) sulfamethizole Allergy Mild Hives Verified 06/27/19 04:40 sulfamethoxazole Allergy Mild hives Verified 06/27/19 04:40 trimethoprim Allergy Mild hives Verified 06/27/19 04:40 codeine AdvReac Severe Nausea and Verified 06/27/19 04:40 Vomiting Review of Systems Review of Systems: All systems reviewed & are unremarkable except as noted in HPI and below Constitutional: Constitutional: Denies fever(s) Cardiovascular: Cardiovascular: Reports chest pain Respiratory: Respiratory: Reports cough and Reports dyspnea PMFSH Past Medical History Medical History Anemia of chronic disease Anxiety Bronchitis CHF (congestive heart failure) Diastolic congestive heart failure with pseudonormal diastolic dysfunction grade 2 from echocardiogram April 2018 with normal ejection fraction Chronic back pain Chronic hyponatremia Chronic stable angina Negative cardiac catheterization in 2013 performed at [facility], negative stress test September 2018 CKD stage 3 due to type 1 diabetes mellitus Colon polyps COPD (chronic obstructive pulmonary disease) Depression Diabetes With last hemoglobin A1c of 13 March 05, 2019 Diabetic peripheral neuropa
[2019-06-27 00:34] LABS: Alveolar/Arterial O2 Gradient 37.7 mmHg; Base Excess ABG 1.2 mEq/l (+/-2.0); Carboxyhemoglobin 0.3 % THb (0-2.0); Fractional Inspired Oxygen 21 %; HCO3 ABG 25.4 mEq/l (22.0-26.0); Methemoglobin ABG 0.2 %THb (0-1.5); Oxygen Content ABG 13.1 %vol (16.0-22.0); Oxygen Saturation ABG 93.7 % (95.0-100.0); Oxyhemoglobin 91.6 % THb (90.0-100.0); PCO2 ABG 38.6 mmHg (35.0-45.0); PO2 ABG 65.8 mmHg (80.0-100.0); PO2 FiO2 Ratio Arterial Blood 3.13 %; Reduced Hemoglobin 7.9 %THb (0-5.0); Total Hemoglobin 10.1 g/dL (12.0-18.0); pH ABG 7.436 (7.350-7.450)
[2019-06-27 00:35] LABS: INR 1.1; Prothrombin Time 13.6 Seconds (11.1-14.7)
[2019-06-27 00:36] LABS: Device ROOM AIR; Modified Allen's Test Pass; Site Drawn LEFT RADIAL
[2019-06-27 00:36] LABS: Partial Thromboplastin Time 27.3 SECONDS (22.3-36.8)
[2019-06-27 00:38] LABS: Alanine Aminotransferase 34 U/L (4-35); Albumin Level 3.8 g/dL (3.5-5.1); Alkaline Phosphatase 101 U/L (38-126); Aspartate Amino Transferase 34 U/L (14-36); Bilirubin,Total 0.4 mg/dL (0.2-1.3)
[2019-06-27 00:50] LABS: NT Pro B Type Natriuretic Pept 1700 PG/ML (5-100); Troponin I 0.015 ng/mL (0.000-0.034)
[2019-06-27] MEDS: BUMETANIDE INJ 1 MG/4 ML VIAL 2 MG IV PUSH ×3 (01:52→17:06)
[2019-06-27] MEDS: INSULIN HUMAN REGULAR (*BKC) 100 UNITS/ML 10 UNITS IV PUSH (01:53)
[2019-06-27 02:28] LABS: Troponin I 0.017 ng/mL (0.000-0.034)
[2019-06-27 03:07] LABS: Glucose Point of Care 402 (65-105)
--- NOTE | 2019-06-27 04:22 | ADMGEN ---
This patient, Bettye Parada, was admitted to IMU Room 203-01 on 06/27/19 at 0411. Patient/family oriented to hospital policies and general routines including ID bracelet, bed and alarms, visiting hours, pain management, procedures, bathroom and other care routines, personal items, smoking policy, room service/diet, and visiting hours. Valuables list has been completed. Information on how to activate the Rapid Response Team has been discussed. Patient/Family are encouraged to report perceived risks to care and to ask questions if they do not understand what they are told or what they should do.
[2019-06-27 06:17] LABS: Troponin I 0.018 ng/mL (0.000-0.034)
[2019-06-27] MEDS: ISOSORBIDE MONONITRATE 60 MG TAB.ER.24H 120 MG PO (08:16)
[2019-06-27] MEDS: ARIPIPRAZOLE 10 MG TABLET 20 MG PO (08:16)
[2019-06-27] MEDS: ATORVASTATIN 20 MG TABLET PO (08:17)
[2019-06-27] MEDS: GABAPENTIN 300 MG CAPSULE PO ×3 (08:17→22:37)
[2019-06-27] MEDS: METOPROLOL TARTRATE 25 MG TABLET PO ×2 (08:17→20:41)
[2019-06-27] MEDS: DULOXETINE 60 MG CAPSULE.DR PO ×2 (08:17→20:40)
[2019-06-27] MEDS: LORATADINE 10 MG TABLET PO (08:17)
[2019-06-27] MEDS: HYDROXYCHLOROQUINE SULFATE 200 MG TABLET PO ×2 (08:17→17:05)
[2019-06-27] MEDS: ACYCLOVIR 400 MG TABLET PO ×2 (08:17→20:40)
[2019-06-27] MEDS: INSULIN ASPART (*BKC) 100 UNITS/ML 15 UNITS SUB-Q ×2 (08:19→12:17)
[2019-06-27] MEDS: INSULIN GLARGINE (*BKC) 100 UNITS/ML 40 UNITS SUB-Q ×2 (08:19→12:14)
[2019-06-27] MEDS: MONTELUKAST SODIUM 10 MG TABLET PO (08:22)
[2019-06-27 11:46] LABS: Glucose Point of Care 446 (65-105)
[2019-06-27 11:46] LABS: Glucose Point of Care 411 (65-105)
--- NOTE | 2019-06-27 15:57 | PM.IMHP ---
H&P: HPI History of Present Illness Chief complaint: Acute on chronic, CHF, hyperglycemia Narrative: Bettye Parada is a 53 year old female patient is morbidly obese with BMI 56 patient was recently discharged on June 15 after see was treated for acute on chronic diastolic dysfunction and discharged home on Bumex, patient was also tested for COVID-19 and was negative, patient presented to emergency department with increasing shortness of breath and lower extremity edema which were progressive getting worse with her oral Bumex, patient denies any cough chest pain palpitation fever or chills, most likely patient has acute on chronic diastolic dysfunction patient is started on IV Bumex will continue to monitor patient, patient also has a lower extremity edema with wound and seen by wound team Review of Systems Review of Systems: All systems reviewed & are unremarkable except as noted in HPI and below PMFSH Past Medical History Medical History Anemia of chronic disease Anxiety Bronchitis CHF (congestive heart failure) Diastolic congestive heart failure with pseudonormal diastolic dysfunction grade 2 from echocardiogram April 2018 with normal ejection fraction Chronic back pain Chronic hyponatremia Chronic stable angina Negative cardiac catheterization in 2013 performed at [facility], negative stress test September 2018 CKD stage 3 due to type 1 diabetes mellitus Colon polyps COPD (chronic obstructive pulmonary disease) Depression Diabetes With last hemoglobin A1c of 13 March 05, 2019 Diabetic peripheral neuropathy DVT complicating Endometriosis Epilepsy Essential hypertension Foot fracture, right GERD (gastroesophageal reflux disease) Herpes History of angina Hyperlipidemia IBS (irritable bowel syndrome) Lumbar spondylosis Pancreatitis PID (acute pelvic inflammatory disease) Pneumonia Post-menopausal Sarcoidosis Primarily affecting the skin but some sarcoid of the lung as well Seasonal allergies Sleep apnea With BiPAP therapy at night Suicide attempt March 2014 Surgical History Surgical History H/O laparoscopy History of cardiac catheterization History of section History of cholecystectomy History of endometrial ablation History of rectal polypectomy History of spinal surgery Spinal decompression surgery History of tubal ligation Social History Social History Smoking packs per day: 1 Smoking cigarettes per day: 20.0 Years smoked: 17 Smoking pack-years: 17.00 Smoking status: Former smoker Tobacco type: cigarettes Second hand tobacco smoke exposure: No Smoking end date: 03/06/17 Alcohol intake: never Substance use: never Substance use type: does not use Gender identity (if verbalized by the patient): Female Spiritual care concerns: No Agree to blood products: Yes Meds Home Medications and Allergies Home Medications Medication Instructions Recorded Confirmed Type aripiprazole [Abilify] 20 mg PO DAILY 03/05/19 06/27/19 History atorvastatin 20 mg PO DAILY 03/05/19 06/27/19 History cetirizine [Zyrtec] 10 mg PO DAILY 03/05/19 06/27/19 History duloxetine [Cymbalta] 60 mg PO BID 03/05/19 06/27/19 History gabapentin 300 mg PO TID 03/05/19 06/27/19 History hydroxychloroquine [Plaquenil] 200 mg PO BID 03/05/19 06/27/19 History hydroxyzine pamoate [Vistaril] 25 mg PO HS 03/05/19 06/27/19 History isosorbide mononitrate 120 mg PO DAILY 03/05/19 06/27/19 History metoprolol tartrate 25 mg PO BID 03/05/19 06/27/19 History montelukast 10 mg PO DAILY 03/05/19 06/27/19 History albuterol sulfate 90 mcg/actuation 2 puff INHALATION Q4-6H PRN #8.5 gm 03/09/19 06/27/19 Rx aerosol inhaler acyclovir 400 mg tablet 400 mg PO BID #60 tablet 05/12/19 06/27/19 Rx oxycodone-acetaminophen 10 mg-3
[2019-06-27] MEDS: INSULIN ASPART (*BKC) 100 UNITS/ML 25 UNITS SUB-Q (17:42)
[2019-06-27 20:39] LABS: Glucose Point of Care 434 (65-105)
[2019-06-27 20:39] LABS: Glucose Point of Care 442 (65-105)
[2019-06-27] MEDS: HEPARIN SODIUM 5,000 UNITS/ML VIAL 5000 UNITS SUB-Q (20:42)
[2019-06-27] MEDS: INSULIN GLARGINE (*BKC) 100 UNITS/ML 70 UNITS SUB-Q (20:47)
[2019-06-27] MEDS: hydrOXYzine pamoate 25 MG CAPSULE PO (20:51)
[2019-06-28] VITALS (14 sets, daily range): BP systolic 125–149; BP diastolic 43–65; PULSE 61–96; RESP 16–20; TEMP 35.7–36.5; O2SAT 95–98
[2019-06-28] MEDS: GABAPENTIN 300 MG CAPSULE PO ×3 (05:59→20:10)
[2019-06-28 08:21] LABS: Glucose Point of Care 330 (65-105)
[2019-06-28] MEDS: DULOXETINE 60 MG CAPSULE.DR PO ×2 (08:58→20:10)
[2019-06-28] MEDS: METOPROLOL TARTRATE 25 MG TABLET PO ×2 (08:58→20:10)
[2019-06-28] MEDS: ACYCLOVIR 400 MG TABLET PO ×2 (08:58→20:10)
[2019-06-28] MEDS: HYDROXYCHLOROQUINE SULFATE 200 MG TABLET PO ×2 (08:58→16:33)
[2019-06-28] MEDS: ATORVASTATIN 20 MG TABLET PO (08:59)
[2019-06-28] MEDS: LORATADINE 10 MG TABLET PO (08:59)
[2019-06-28] MEDS: ISOSORBIDE MONONITRATE 60 MG TAB.ER.24H 120 MG PO (08:59)
[2019-06-28] MEDS: HEPARIN SODIUM 5,000 UNITS/ML VIAL 5000 UNITS SUB-Q ×2 (08:59→20:10)
[2019-06-28] MEDS: MONTELUKAST SODIUM 10 MG TABLET PO (08:59)
[2019-06-28] MEDS: ARIPIPRAZOLE 10 MG TABLET 20 MG PO (08:59)
[2019-06-28] MEDS: INSULIN GLARGINE (*BKC) 100 UNITS/ML 70 UNITS SUB-Q ×2 (09:01→20:15)
[2019-06-28] MEDS: INSULIN ASPART (*BKC) 100 UNITS/ML SUB-Q ×3 (09:02→16:56)
[2019-06-28] MEDS: INSULIN ASPART (*BKC) 100 UNITS/ML 25 UNITS SUB-Q ×3 (09:03→16:56)
[2019-06-28] MEDS: BUMETANIDE INJ 1 MG/4 ML VIAL 2 MG IV PUSH ×2 (09:04→16:34)
[2019-06-28 09:42] LABS: Hemoglobin A1C 10.9 % (<5.7)
[2019-06-28 09:50] LABS: Blood Urea Nitrogen 37 mg/dL (7-17); Calcium 8.8 mg/dL (8.4-10.2); Carbon Dioxide 27 mmol/L (22-30); Chloride 95 mmol/L (98-107); Estimated CRCL calculation 78 ml/min; Estimated Glomerular Filt Rate 43; Glucose 390 mg/dL (65-105); Potassium 4.3 mmol/L (3.4-5.0); Sodium 134 mmol/L (137-145)
--- NOTE | 2019-06-28 11:08 | PC.NURSE ---
This patient, Bettye Parada, was transferred to [facility] on 06/28/19 at 1108. Personal belongings sent with patient. Belongings list checked and signed with receiving RN. Report given to CAROLINE Gold. Appropriate documentation sent with patient.
--- NOTE | 2019-06-28 11:10 | PC.NURSE ---
Received patient from IMU via bed with IMU staff. Patient settled in room. No distress noted. No c/o pain. Oriented to unit.
[2019-06-28 11:53] LABS: Glucose Point of Care 369 (65-105)
--- NOTE | 2019-06-28 12:39 | PM.IMPN ---
Progress Note: A&P Assessment and Plan (1) Acute on chronic diastolic (congestive) heart failure: Code(s): I50.33 - Acute on chronic diastolic (congestive) heart failure Status: Acute Assessment and Plan: 06/28/19 12:39 Bettye Parada is a 53 year old female patient is morbidly obese with BMI 56 patient was recently discharged on June 15 after see was treated for acute on chronic diastolic dysfunction and discharged home on Bumex, patient was also tested for COVID-19 and was negative, patient presented to emergency department with increasing shortness of breath and lower extremity edema which were progressive getting worse with her oral Bumex, patient denies any cough chest pain palpitation fever or chills, most likely patient has acute on chronic diastolic dysfunction patient was started on IV Bumex and and has lost over 5 L of fluids, will continue to monitor patient, patient also has a lower extremity edema with wound and seen by wound team (2) Hyperglycemia: Code(s): R73.9 - Hyperglycemia, unspecified Status: Acute Assessment and Plan: Patient with history of uncontrolled type 2 diabetes insulin dependen with hemoglobin A1c of 10.9, will continue home regimen and monitor with sliding scale, will consult senior health educator for further recommendation. (3) Edema: Code(s): R60.9 - Edema, unspecified Status: Acute Assessment and Plan: Most likely secondary to acute on chronic diastolic dysfunction plan is above (4) Acute kidney injury superimposed on chronic kidney disease: Code(s): N17.9 - Acute kidney failure, unspecified; N18.9 - Chronic kidney disease, unspecified Status: Acute Assessment and Plan: Patient with acute on chronic kidney disease most likely secondary to diabetic nephropathy and on diuresis will closely monitor patient kidney function (5) Sleep apnea: Qualifiers: Sleep apnea type: obstructive Qualified Code(s): G47.33 - Obstructive sleep apnea (adult) (pediatric) Code(s): G47.30 - Sleep apnea, unspecified Status: Acute Assessment and Plan: Will provide patient with CPAP with home settings Subjective Date/time seen: 06/28/19 12:39 Bettye Parada is a 53 year old female patient is morbidly obese with BMI 56 patient was recently discharged on June 15 after see was treated for acute on chronic diastolic dysfunction and discharged home on Bumex, patient was also tested for COVID-19 and was negative, patient presented to emergency department with increasing shortness of breath and lower extremity edema which were progressive getting worse with her oral Bumex, patient denies any cough chest pain palpitation fever or chills, most likely patient has acute on chronic diastolic dysfunction patient was started on IV Bumex and and has lost over 5 L of fluids, will continue to monitor patient, patient also has a lower extremity edema with wound and seen by wound team Review of Systems Review of Systems: All systems reviewed & are unremarkable except as noted in HPI and below Exam Narrative: Exam Narrative: Morbidly obese with BMI of 56 Const: General: no acute distress and uncomfortable HENMT: General nose exam: Normal nares present Mouth: Yes moist mucous membranes Eyes: General: appearance normal, both eyes and all related structures Sclera: sclerae normal Neck: Other: No retraction Resp: Other: Bilateral fair air entry with rales and rhonchi Cardio: Rate: regular rate Rhythm: regular rhythm Skin: General skin exam: normal color Neuro: Speech: normal speech Sensory Exam: normal sensation Extrem: Other: Bilateral lower extremity edema, with right lower leg with wound dressing Psych: Affect: Anxious affect present Objective Data Vital Signs Vital Signs: Vital Signs - 24 hr 06/27/19 14:17 06/27/19 16:00 06/27/19 18:20 Temperature 97.1 F L Pulse Rate 75 71 78 Respiratory Rate 20
[2019-06-28 17:01] LABS: Glucose Point of Care 320 (65-105)
[2019-06-28] MEDS: hydrOXYzine pamoate 25 MG CAPSULE PO (20:10)
[2019-06-28 20:44] LABS: Glucose Point of Care 382 (65-105)
[2019-06-29 06:00] VITALS: BP 125/41; PULSE 63; RESP 16; TEMP 35.6; O2SAT 65
[2019-06-29 07:59] LABS: Glucose Point of Care 320 (65-105)
[2019-06-29] MEDS: INSULIN ASPART (*BKC) 100 UNITS/ML SUB-Q ×2 (08:28→11:56)
[2019-06-29] MEDS: INSULIN GLARGINE (*BKC) 100 UNITS/ML 70 UNITS SUB-Q (08:29)
[2019-06-29] MEDS: INSULIN ASPART (*BKC) 100 UNITS/ML 25 UNITS SUB-Q ×2 (08:29→11:56)
[2019-06-29] MEDS: GABAPENTIN 300 MG CAPSULE PO ×2 (08:31→13:33)
[2019-06-29] MEDS: ARIPIPRAZOLE 10 MG TABLET 20 MG PO (08:32)
[2019-06-29] MEDS: ACYCLOVIR 400 MG TABLET PO (08:32)
[2019-06-29] MEDS: HYDROXYCHLOROQUINE SULFATE 200 MG TABLET PO (08:32)
[2019-06-29 08:33] VITALS: PULSE 63
[2019-06-29] MEDS: METOPROLOL TARTRATE 25 MG TABLET PO (08:33)
[2019-06-29] MEDS: ATORVASTATIN 20 MG TABLET PO (08:33)
[2019-06-29] MEDS: ISOSORBIDE MONONITRATE 60 MG TAB.ER.24H 120 MG PO (08:33)
[2019-06-29] MEDS: BUMETANIDE INJ 1 MG/4 ML VIAL 2 MG IV PUSH (08:33)
[2019-06-29] MEDS: DULOXETINE 60 MG CAPSULE.DR PO (08:33)
[2019-06-29] MEDS: HEPARIN SODIUM 5,000 UNITS/ML VIAL 5000 UNITS SUB-Q (08:33)
[2019-06-29] MEDS: LORATADINE 10 MG TABLET PO (08:33)
[2019-06-29] MEDS: MONTELUKAST SODIUM 10 MG TABLET PO (08:33)
[2019-06-29 09:45] LABS: Blood Urea Nitrogen 32 mg/dL (7-17); Calcium 9.3 mg/dL (8.4-10.2); Carbon Dioxide 33 mmol/L (22-30); Chloride 95 mmol/L (98-107); Estimated CRCL calculation 69 ml/min; Estimated Glomerular Filt Rate 36; Glucose 409 mg/dL (65-105); Potassium 3.9 mmol/L (3.4-5.0); Sodium 134 mmol/L (137-145)
[2019-06-29] MEDS: MUPIROCIN 2% OINT 22 GM TUBE 1 APPLIC TOPICAL (10:07)
[2019-06-29 10:45] VITALS: BMI 54.3
[2019-06-29 11:25] LABS: Glucose Point of Care 405 (65-105)
--- NOTE | 2019-06-29 12:39 | PM.DS ---
DS: Diagnosis Admitting Diagnosis Admitting Diagnosis: Acute on chronic diastolic (congestive) heart failure Discharge Diagnosis (1) Acute on chronic diastolic (congestive) heart failure: Code(s): I50.33 - Acute on chronic diastolic (congestive) heart failure Status: Acute Assessment and Plan: 06/28/19 12:39 Bettye Parada is a 53 year old female patient is morbidly obese with BMI 56 patient was recently discharged on June 15 after see was treated for acute on chronic diastolic dysfunction and discharged home on Bumex, patient was also tested for COVID-19 and was negative, patient presented to emergency department with increasing shortness of breath and lower extremity edema which were progressive getting worse with her oral Bumex, patient denies any cough chest pain palpitation fever or chills, most likely patient has acute on chronic diastolic dysfunction patient was started on IV Bumex and and has lost over 5 L of fluids, will continue to monitor patient, patient also has a lower extremity edema with wound and seen by wound team (2) Hyperglycemia: Code(s): R73.9 - Hyperglycemia, unspecified Status: Acute Assessment and Plan: Patient with history of uncontrolled type 2 diabetes insulin dependen with hemoglobin A1c of 10.9, will continue home regimen and monitor with sliding scale, will consult ict educator for further recommendation. (3) Edema: Code(s): R60.9 - Edema, unspecified Status: Acute Assessment and Plan: Most likely secondary to acute on chronic diastolic dysfunction plan is above (4) Acute kidney injury superimposed on chronic kidney disease: Code(s): N17.9 - Acute kidney failure, unspecified; N18.9 - Chronic kidney disease, unspecified Status: Acute Assessment and Plan: Patient with acute on chronic kidney disease most likely secondary to diabetic nephropathy and on diuresis will closely monitor patient kidney function (5) Sleep apnea: Qualifiers: Sleep apnea type: obstructive Qualified Code(s): G47.33 - Obstructive sleep apnea (adult) (pediatric) Code(s): G47.30 - Sleep apnea, unspecified Status: Acute Assessment and Plan: Will provide patient with CPAP with home settings DS: Summary Hospital Course Reason for hospitalization: Bettye Parada is a 53 year old female patient is morbidly obese with BMI 56 patient was recently discharged on June 15 after see was treated for acute on chronic diastolic dysfunction and discharged home on Bumex, patient was also tested for COVID-19 and was negative, patient presented to emergency department with increasing shortness of breath and lower extremity edema which were progressive getting worse with her oral Bumex, patient denies any cough chest pain palpitation fever or chills, most likely patient has acute on chronic diastolic dysfunction patient is started on IV Bumex will continue to monitor patient, patient also has a lower extremity edema with wound and seen by wound team Hospital Course: Bettye Parada is a 53 year old female patient is morbidly obese with BMI 56 patient was recently discharged on June 15 after see was treated for acute on chronic diastolic dysfunction and discharged home on Bumex, patient was also tested for COVID-19 and was negative, patient presented to emergency department with increasing shortness of breath and lower extremity edema which were progressive getting worse with her oral Bumex, patient denies any cough chest pain palpitation fever or chills, most likely patient has acute on chronic diastolic dysfunction patient was started on IV Bumex and and has lost over 5 L of fluids, will continue to monitor patient, patient also has a lower extremity edema with wound and seen by wound team, today patient is feeling better and not has short of breath, will discharge today. Status at Discharge Functional status at discharge: uses cane/walker
[2019-06-29 13:28] VITALS: BP 144/77; PULSE 70; RESP 18; TEMP 35.7; O2SAT 97
== END 2019-06-29 13:51 | disposition home or self-care (01) | DRG 292 ==
LOC: ANHED 23:32 → ANHIMU 06-27 03:16 → ANH2MED 06-28 11:09
PROVIDERS: Admitting Provider Internal Medicine; Emergency Provider Emergency Medicine; PCP Internal Medicine; Visit Provider Family Medicine
DX: I50.33 Acute on chronic diastolic (congestive) heart failure (principal); Z68.43 Body mass index [BMI] 50.0-59.9, adult; N17.9 Acute kidney failure, unspecified; E87.1 Hypo-osmolality and hyponatremia; E11.42 Type 2 diabetes mellitus with diabetic polyneuropathy; E11.65 Type 2 diabetes mellitus with hyperglycemia; E11.22 Type 2 diabetes mellitus with diabetic chronic kidney disease; N18.3 Chronic kidney disease, stage 3 (moderate); E11.21 Type 2 diabetes mellitus with diabetic nephropathy; E66.01 Morbid (severe) obesity due to excess calories; D63.8 Anemia in other chronic diseases classified elsewhere; F41.8 Other specified anxiety disorders; K21.9 Gastro-esophageal reflux disease without esophagitis; J44.9 Chronic obstructive pulmonary disease, unspecified; G40.909 Epilepsy, unspecified, not intractable, without status epilepticus; G47.33 Obstructive sleep apnea (adult) (pediatric); E78.5 Hyperlipidemia, unspecified; K58.9 Irritable bowel syndrome, unspecified; M47.896 Other spondylosis, lumbar region; Z86.718 Personal history of other venous thrombosis and embolism; Z90.49 Acquired absence of other specified parts of digestive tract; Z87.891 Personal history of nicotine dependence
CPT/HCPCS: 36415; 36600; 71046; 80048; 80076; 82375; 82805; 82948; 83036; 83050; 83880; 84484; 85025; 85610; 85730; 87070; 87205; 93005; 96372; 96374; 96375; 96376; 99285; A9270; G0378; J1644; J1815